=== PATIENT | female | born 1940 | race Caucasian/White ===

== ENCOUNTER 2019-06-15 10:13 | Outpatient (CLI) | payer MEDICARE, MEDICAID, SELFPAY ==
--- NOTE | ~2019-06-15 | NM_ITS ---
EXAMINATION: NM bone 3 phase DATE: 06/15/2019 13:27 INDICATION: Left knee arthroplasty loosening. TECHNIQUE: 22.2 mCi Tc-99m HDP was administered intravenously. Scintigrams of the knees were obtained in angiographic, blood pool, and delayed phases. COMPARISON: Left knee radiographs 08/14/2017 FINDINGS: Right knee demonstrates joint-centered increased activity in the medial compartment on the delayed phase without radiographic comparison, likely osteoarthritis. There is a total left knee arth roplasty. There is mildly increased activity adjacent to the femoral, tibial, and patellar components on the delayed phase images. IMPRESSION: 1. Total left knee arthroplasty with mildly increased activity adjacent to the components, which may be normal or a finding of loosening or infection. Correlate with recent radiographs. Reviewed, dictated and finalized at location A. [facility] SEPARATION IMPRESSION: 1. Total left knee arthroplasty with mildly increased activity adjacent to the components, which may be normal or a finding of loosening or infection. Correl ate with recent radiographs.
[2019-06-15 12:08] LABS: Erythrocyte Sedimentation Rate 20 mm/hr (0-20)
[2019-06-15 12:11] LABS: CRP < 0.5 mg/dL (<1.0)
== END 2019-06-15 10:14 | disposition home or self-care (01) ==
LOC: ANHIMG 10:24
PROVIDERS: PCP Family Medicine; Visit Provider Orthopaedic Surgery
DX: T85.698A Other mechanical complication of other specified internal prosthetic devices, implants and grafts, initial encounter (principal); Z96.652 Presence of left artificial knee joint
CPT/HCPCS: 36415; 78315; 85652; 86140; A9561

== ENCOUNTER → 2020-06-06 07:51 | Outpatient (REF) | payer MEDICARE, BC, SELFPAY | LOC: ANHLAB 07:51 | PROVIDERS: PCP Family Medicine; Visit Provider Nurse Practitioner | DX: C44.519 Basal cell carcinoma of skin of other part of trunk (principal) | CPT/HCPCS: 88305; 88331; 88332 ==

== ENCOUNTER 2020-10-05 08:20 | Outpatient (CLI) | payer MEDICARE, MEDICAID, SELFPAY ==
[2020-10-05 09:30] LABS: Basophils Absolute Auto 0.1 K/mm3 (0.0-0.1); Basophils Percent Auto 0.8 % (0.2-1.2); Eosinophils Absolute Auto 0.2 K/mm3 (0-0.3); Eosinophils Percent Auto 2.6 % (0-4.4); Hemoglobin 13.5 g/dL (12.0-15.0); Immature Granulocyte Absolute 0.04 K/mm3 (0.00-0.031); Immature Granulocyte Percent A 0.5 % (0-0.5); Lymphocytes Absolute Auto 1.23 K/mm3 (0.9-3.2); Lymphocytes Percent Auto 16.2 % (18.3-44.2); Mean Corpuscular HGB Conc 32.9 g/dl (32-36); Mean Corpuscular Hemoglobin 29.5 pg (26-34); Mean Corpuscular Volume 89.7 fl (80-100); Mean Platelet Volume 10.1 fl (7.4-10.4); Monocytes Absolute Auto 0.6 K/mm3 (0.1-0.6); Neutrophils Absolute Auto 5.5 K/mm3 (1.3-6.7); Neutrophils Percent Auto 71.9 % (45.5-73.1); Platelet Count Result 265 k/mm3 (150-375); Red Blood Count 4.57 M/mm3 (4.2-5.4); Red Cell Distribution Width 12.9 % (11.5-14.5); White Blood Count 7.6 K/mm3 (4.5-10.0)
[2020-10-05 09:36] LABS: Hemoglobin A1C 6.3 % (<5.7)
[2020-10-05 09:39] LABS: INR 2.1
[2020-10-05 09:50] LABS: Alanine Aminotransferase 42 U/L (4-35); Albumin Level 4.4 g/dL (3.5-5.1); Alkaline Phosphatase 78 U/L (38-126); Anion Gap 8 mmol/L (8-16); Aspartate Amino Transferase 50 U/L (14-36); Bilirubin,Total 0.7 mg/dL (0.2-1.3); Blood Urea Nitrogen 21 mg/dL (7-17); Calcium 9.9 mg/dL (8.4-10.2); Carbon Dioxide 28 mmol/L (22-30); Chloride 107 mmol/L (98-107); Cholesterol 189 mg/dL (0-200); Estimated Glomerular Filt Rate > 60; Glucose 115 mg/dL (65-105); HDL Direct 57 mg/dL; Sodium 143 mmol/L (137-145); Triglycerides 158 mg/dL (<150)
[2020-10-05 09:56] LABS: LDL Cholesterol Direct 93 mg/dL
[2020-10-05 10:02] LABS: Creatinine Urine 106.9 mg/dL
[2020-10-05 10:03] LABS: MALB Creatinine Ratio 6.5 mg/g (0-30)
[2020-10-05 10:13] LABS: Total Triiodothyronine (T3) 1.38 NG/ML (0.97-1.69)
[2020-10-05 10:14] LABS: Free T4 Free Thyroxine 1.29 ng/mL (0.78-2.19); Vitamin D 25 Hydroxy 46.1 ng/mL
== END 2020-10-05 08:21 | disposition home or self-care (01) ==
PROVIDERS: PCP Family Medicine; Referring Provider Nurse Practitioner Family; Visit Provider Nurse Practitioner
DX: R73.03 Prediabetes (principal); Z79.01 Long term (current) use of anticoagulants; E66.01 Morbid (severe) obesity due to excess calories; Z51.89 Encounter for other specified aftercare
CPT/HCPCS: 36415; 80053; 80061; 82043; 82306; 83036; 84439; 84443; 84480; 85025; 85610; 85730

== ENCOUNTER 2020-10-08 10:33 | Emergency (ER) | payer MEDICARE, MEDICAID, SELFPAY ==
[2020-10-08 10:38] VITALS: BP 143/94; PULSE 76; RESP 24; TEMP 36.6; O2SAT 98
--- NOTE | 2020-10-08 11:05 | ED.WOUNDLAC ---
HPI - Wound/Laceration General Chief Complaint: Wound/Laceration Stated Complaint: L LEG INFECTION Time Seen by Provider: 10/08/20 10:37 Source: patient Mode of arrival: ambulatory Limitations: no limitations History of Present Illness HPI narrative: 80-year-old female presents to urgent care with complaints of erythematous rash to her left anterior and posterior leg for the past 6 days. Patient reports in September 23 she had a skin cancer removed to her posterior left lower leg and had 10 cora and sutures placed at that time. Patient reports that she is scheduled to follow-up with the plastic surgeon on October 11 to have cora and sutures removed. Patient reports that she did finish clindamycin 1 week ago. Patient reports that she was placed on an antibiotic prior to surgery and after surgery. Patient reports that she has been cleansing the area with antibiotic soap and reports that she has had a reaction to the soap in the past. Patient reports that she also is sensitive to tapes and adhesives. Patient denies fever, bodies, chills, nausea, vomiting or diarrhea Onset (ago): day(s) () Extremity Location: Left: lower leg Body four view annotation: 1. Poorly healing surgical site with surrounding erythema and macular papular rash Patient tetanus UTD: Yes Associated symptoms: none Related Data Home Medications Medication Instructions Recorded Confirmed metoprolol tartrate 50 mg tablet 50 mg PO Q12H 06/06/20 10/08/20 amlodipine 10 mg PO DAILY 10/08/20 10/08/20 ascorbate calcium (vitamin C) 500 mg PO DAILY 10/08/20 10/08/20 calcium carbonate [Calcium 500] 500 mg PO DAILY 10/08/20 10/08/20 cholecalciferol (vitamin D3) 125 mcg PO DAILY 10/08/20 10/08/20 [Vitamin D3] omega-3 fatty acids [[place] 3] 1,000 mg PO DAILY 10/08/20 10/08/20 vitamin B complex [B 1 tablet PO DAILY 10/08/20 10/08/20 Complex-Vitamin B12] warfarin 1 mg PO DAILY 10/08/20 10/08/20 warfarin 3 mg PO BID 10/08/20 10/08/20 Allergies Allergy/AdvReac Type Severity Reaction Status Date / Time adhesive Allergy Severe LOST SKIN Verified 10/08/20 10:41 LAST TIME,BLISTERS tetracycline Allergy Severe RASH Verified 10/08/20 10:41 Penicillins Allergy Unknown Unknown Verified 10/08/20 10:41 Sulfa (Sulfonamide Allergy Unknown RASH Verified 10/08/20 10:41 Antibiotics) sulfanilamide Allergy Unknown Unknown Verified 10/08/20 10:41 Review of Systems Constitutional: Constitutional: Denies chills, Denies fatigue, Denies fever(s) and Denies weakness Cardiovascular: Cardiovascular: Denies chest pain Respiratory: Respiratory: Denies cough, Denies dyspnea and Denies wheezing Gastrointestinal: Gastrointestinal: Denies abdominal pain, Denies nausea and Denies vomiting Integumentary/Breasts: Skin/Breast: Denies pruritus, Reports rash and Denies skin ulcer PMFSH Past Medical History Medical History DVT (deep venous thrombosis) History of melanoma HTN (hypertension) Pulmonary embolism Surgical History Surgical History History of appendectomy History of cataract extraction History of hernia repair Total knee replacement status Family History Family History Sibling Family history of diabetes mellitus in first degree relative Mother Family history of diabetes mellitus in first degree relative, Onset Age: 66 Patient's mother is Other Cerebrovascular accident Social History Social History Smoking status: Former smoker Smoking end date: 06/03/71 Alcohol intake: never Gender identity (if verbalized by the patient): Female Comments At time of signature, I agree with nursing past medical, surgical, social and family history. There is no relevant family history pertinent to the presenting complain
== END 2020-10-08 11:20 | disposition home or self-care (01) ==
PROVIDERS: Emergency Provider Nurse Practitioner Family; PCP Family Medicine
DX: L03.116 Cellulitis of left lower limb (principal); R21 Rash and other nonspecific skin eruption; Z87.891 Personal history of nicotine dependence; Z86.718 Personal history of other venous thrombosis and embolism; I10 Essential (primary) hypertension; Z86.711 Personal history of pulmonary embolism; Z85.820 Personal history of malignant melanoma of skin; Z98.49 Cataract extraction status, unspecified eye; Z96.659 Presence of unspecified artificial knee joint
CPT/HCPCS: 99213; G0463

== ENCOUNTER → 2020-10-27 11:54 | Outpatient (CLI) | payer MEDICARE, SELFPAY ==
--- NOTE | ~2020-10-27 | MM_ITS ---
EXAMINATION: MM screening cal BI w etta HISTORY: Screening mammogram TECHNIQUE: Craniocaudal and mediolateral oblique 3-D tomosynthesis images were obtained and synthetic 2-D images were generated. CAD analysis was submitted and interpreted. COMPARISON: 12/15/2015, 09/26/2012 bilateral digital screening mammogram examinations BREAST PARENCHYMAL COMPOSITION: There are scattered areas of fibroglandular density. FINDINGS: There are numerous bilateral benign calcifications, likely calcified microhematomas and sec retory calcifications as well as arterial calcification. There is no evidence of suspicious mass, stephanie cification, or architectural distortion to suggest malignancy in either breast. There has been no estiven picious interval change. IMPRESSION: 1. No mammographic evidence of malignancy. 2. Recommend routine screening mammography in one year. BI-RADS Category 2: Benign finding(s). Reviewed, dictated and finalized at location A.
== END ==
PROVIDERS: PCP Family Medicine; Visit Provider Nurse Practitioner
DX: Z12.31 Encounter for screening mammogram for malignant neoplasm of breast (principal)
CPT/HCPCS: 77063; 77067

== ENCOUNTER 2020-12-14 08:43 | Outpatient (CLI) | payer MEDICARE, MEDICAID, SELFPAY ==
[2020-12-14 09:58] LABS: Alanine Aminotransferase 32 U/L (4-35); Albumin Level 4.5 g/dL (3.5-5.1); Alkaline Phosphatase 67 U/L (38-126); Anion Gap 11 mmol/L (8-16); Aspartate Amino Transferase 36 U/L (14-36); Bilirubin,Total 0.8 mg/dL (0.2-1.3); Blood Urea Nitrogen 21 mg/dL (7-17); Calcium 9.9 mg/dL (8.4-10.2); Carbon Dioxide 25 mmol/L (22-30); Chloride 106 mmol/L (98-107); Estimated Glomerular Filt Rate > 60; Glucose 110 mg/dL (65-105); Sodium 142 mmol/L (137-145)
== END 2020-12-14 08:44 | disposition home or self-care (01) ==
LOC: ANHLAB 08:47
PROVIDERS: PCP Family Medicine; Visit Provider Nurse Practitioner Family
DX: Z51.81 Encounter for therapeutic drug level monitoring (principal); Z79.899 Other long term (current) drug therapy
CPT/HCPCS: 36415; 80053

== ENCOUNTER 2021-01-11 06:51 | Day surgery (SDC) | payer MEDICARE, MEDICAID, SELFPAY ==
[2020-12-29 12:55] VITALS: BMI 39.8
[2021-01-11 09:15] VITALS: BP 135/85; PULSE 65; RESP 18; TEMP 35.7; O2SAT 97; BMI 36.9
[2021-01-11] MEDS: LACTATED RINGERS 1,000 ML 150 ML IV CONT (09:37)
--- NOTE | 2021-01-11 09:37 | P.PNAN_ITS ---
Anes - Initial Pre Proc Eval Procedure: Operation Date: 01/11/21 10:00 Proposed Procedures p Screening Colonoscopy - Chris Toro MD Date/Time: 01/11/21 09:37 Surgeon: Chris Toro MD Pre Op Diagnosis: hx of colon polyps Patient Data Age: 80 Gender: F Height: 1.65 m Weight: 100.7 kg Last Vital Signs Temp 35.7 C L 01/11/21 09:15 Pulse 65 01/11/21 09:15 Resp 18 01/11/21 09:15 BP 135/85 01/11/21 09:15 Pulse Ox 97 01/11/21 09:15 Allergies Allergy/AdvReac Type Severity Reaction Status Date / Time adhesive tape Allergy Rash Verified 01/11/21 09:14 Penicillins Allergy Hives Verified 01/11/21 09:14 Sulfa (Sulfonamide Allergy Hives Verified 01/11/21 09:14 Antibiotics) Home Medications Medication Instructions Recorded Confirmed Type sodium,potassium,mag sulfates See Rx Instructions .ROUTE 12/27/20 Rx [Suprep Bowel Prep Kit] .COMPLEX #1 ml amlodipine 10 mg PO DAILY 12/29/20 12/29/20 History lisinopril 5 mg PO DAILY 12/29/20 12/29/20 History metoprolol tartrate 50 mg PO DAILY 12/29/20 12/29/20 History warfarin 1 mg PO DAILY 12/29/20 12/29/20 History warfarin 3 mg PO DAILY 12/29/20 12/29/20 History Patient hx anesthesia problems: none Family hx anesthesia problems: none [facility] Past Medical History Medical History (Updated 01/11/21 @ 09:37 by Aries Nicholson MD) DVT (deep venous thrombosis) HTN (hypertension) Obesity Social History Social History Substance use type: does not use Gender identity (if verbalized by the patient): Female Anes - Eval Final PreProcedure Day of Procedure 01/11/21 09:37 Patient weight: obese Heart: regular rate and rhythm Lungs: clear to auscultation Airway: Mallampati scale class II Neurological: alert and oriented Last oral intake: >/= 8 hours ASA classification: III Emergent: no Anesthetic plan: proceed (pending INR) Anesthesia type and monitoring: general GIVS and standard monitoring Informed Consent: The patient's anesthetic plan and its attendant risks and benefits were discussed with the patient/family/POA. Questions were solicited and answers provided to the satisfaction of the patient/family/POA.
--- NOTE | 2021-01-11 09:55 | WPDGICN ---
Assessment and Plan Assessment and plan (1) History of colon polyps: Code(s): Z86.010 - Personal history of colonic polyps Status: Acute Assessment and Plan: Patient has a prior history of colon polyps. She presents today for surveillance examination. Further recommendations will be given after endoscopy. GI Consult Note Consult date/time: 01/11/21 09:55 HPI: Dorene Tapia is a 80 year old female Presents for screening colonoscopy. Patient has a prior history of colon polyps. Her last colonoscopy was 6 years ago. Patient reports that her current weight appetite bowel movements are normal. She denies abdominal pain. She has had no bleeding. Family history is noncontributory. Screening colonoscopy is to be performed. Review of Systems Review of Systems: All systems reviewed & are unremarkable except as noted in HPI and below PMFSH Past Medical History Medical History (Updated 01/11/21 @ 09:56 by Chris Toro MD) DVT (deep venous thrombosis) HTN (hypertension) Obesity Social History Social History Substance use type: does not use Gender identity (if verbalized by the patient): Female Meds Home Medications and Allergies Home Medications Medication Instructions Recorded Confirmed Type amlodipine 10 mg PO DAILY 12/29/20 12/29/20 History lisinopril 5 mg PO DAILY 12/29/20 12/29/20 History metoprolol tartrate 50 mg PO DAILY 12/29/20 01/11/21 History warfarin 1 mg PO DAILY 12/29/20 12/29/20 History warfarin 3 mg PO DAILY 12/29/20 12/29/20 History Allergies Allergy/AdvReac Type Severity Reaction Status Date / Time adhesive tape Allergy Rash Verified 01/11/21 09:14 Penicillins Allergy Hives Verified 01/11/21 09:14 Sulfa (Sulfonamide Allergy Hives Verified 01/11/21 09:14 Antibiotics) Vital Signs Vital Signs - 24 hr 01/11/21 09:15 Temperature 96.2 F L Pulse Rate 65 Respiratory Rate 18 Blood Pressure 135/85 Pulse Oximetry 97 Exam Narrative: Physical exam reveals patient to be alert. Vital signs are stable. HEENT exam is unremarkable. Patient is anicteric. Lungs are clear to auscultation and percussion. Heart is without murmur or extra sounds. Abdomen is obese. Bowel sounds present soft nontender extremities is reveal healed scar over the left knee which is modestly swollen. Digital external rectal exam is normal.
[2021-01-11 10:25] LABS: INR 1.1; Prothrombin Time 13.7 Seconds (11.1-14.7)
[2021-01-11 11:03] VITALS: BP 136/81; PULSE 64; RESP 22; O2SAT 97
[2021-01-11 11:13] VITALS: BP 134/78; PULSE 64; RESP 23; O2SAT 97
[2021-01-11 11:23] VITALS: BP 153/92; PULSE 65; RESP 23; O2SAT 98
== END 2021-01-11 11:30 | disposition home or self-care (01) ==
PROVIDERS: PCP Family Medicine; Visit Provider Internal Medicine Gastroenterology
PROC: 0DJD8ZZ Inspection of Lower Intestinal Tract, Via Natural or Artificial Opening Endoscopic (ICD-10-PCS; CPT 45378; principal; 2021-01-11 10:00)
DX: Z12.11 Encounter for screening for malignant neoplasm of colon (principal); K64.8 Other hemorrhoids; Z86.010 Personal history of colon polyps; I10 Essential (primary) hypertension; Z86.718 Personal history of other venous thrombosis and embolism; Z79.01 Long term (current) use of anticoagulants; E66.9 Obesity, unspecified; Z68.36 Body mass index [BMI] 36.0-36.9, adult
CPT/HCPCS: G0105; 36415; 85610; J7120

== ENCOUNTER 2021-03-08 08:35 | Emergency (ER) | payer OTHER, MEDICARE, MEDICAID, SELFPAY ==
--- NOTE | ~2021-03-08 | XR_ITS ---
EXAMINATION: XR hip RT 2V w AP pelvis DATE: 03/08/2021 09:26 INDICATION: Right hip injury. TECHNIQUE: An anteroposterior view of the pelvis and 2 views of right hip were obtained. COMPARISON: None. FINDINGS: Bone alignment is normal. No fracture. There is moderate osteoarthritis of the hips. There is a calcified mass in the pelvis to the right of midline, likely a uterine fibroid. IMPRESSION: 1. Moderate osteoarthritis of the hips. Reviewed, dictated and finalized at location A.
--- NOTE | ~2021-03-08 | XR_ITS ---
EXAMINATION: XR knee RT min 4V DATE: 03/08/2021 09:26 INDICATION: Right knee injury. TECHNIQUE: 4 views of right knee were obtained. COMPARISON: None. FINDINGS: Bone alignment is normal. No fracture. There is severe osteoarthritis of medial compartment and mild osteoarthritis of lateral and patellofemoral compartments. No knee joint effusion. IMPRESSION: 1. Severe right knee osteoarthritis. Reviewed, dictated and finalized at location A.
[2021-03-08 08:41] VITALS: BP 150/85; PULSE 78; RESP 16; TEMP 36.4; O2SAT 95
--- NOTE | 2021-03-08 08:58 | PC.NURSE ---
Dr. Montez at bedside for pt assessment.
--- NOTE | 2021-03-08 09:26 | ED.LOWEXIN ---
HPI - Extremity Injury (Lower) General Chief Complaint: Extremity Injury, Lower Stated Complaint: fall with right knee pain, 4 days ago Time Seen by Provider: 03/08/21 08:54 Source: patient Mode of arrival: ambulatory Limitations: no limitations History of Present Illness HPI Narrative: This is a 80 year old female who presents for evaluation of right knee pain. Patient fell 4 days ago onto her right knee. She has been able to ambulate with some pain. She thought her pain would improve so she did not go get evaluated at that time. She denies head injury or LOC. She has bruising and swelling to her right knee, and she takes warfarin for history of DVT/PE. She denies chest pain, sob, dizziness, nausea or vomiting. She denies excessive bleeding. Related Data Home Medications Medication Instructions Recorded Confirmed metoprolol tartrate 50 mg tablet 50 mg PO Q12H 06/06/20 10/08/20 amlodipine 10 mg PO DAILY 10/08/20 10/08/20 ascorbate calcium (vitamin C) 500 mg PO DAILY 10/08/20 10/08/20 calcium carbonate [Calcium 500] 500 mg PO DAILY 10/08/20 10/08/20 cholecalciferol (vitamin D3) 125 mcg PO DAILY 10/08/20 10/08/20 [Vitamin D3] omega-3 fatty acids [[place] 3] 1,000 mg PO DAILY 10/08/20 10/08/20 vitamin B complex [B 1 tablet PO DAILY 10/08/20 10/08/20 Complex-Vitamin B12] warfarin 1 mg PO DAILY 10/08/20 10/08/20 warfarin 3 mg PO BID 10/08/20 10/08/20 Allergies Allergy/AdvReac Type Severity Reaction Status Date / Time adhesive Allergy Severe LOST SKIN Verified 03/08/21 08:45 LAST TIME,BLISTERS tetracycline Allergy Severe RASH Verified 03/08/21 08:45 Penicillins Allergy Unknown Unknown Verified 03/08/21 08:45 Sulfa (Sulfonamide Allergy Unknown RASH Verified 03/08/21 08:45 Antibiotics) sulfanilamide Allergy Unknown Unknown Verified 03/08/21 08:45 Review of Systems Review of Systems: All systems reviewed & are unremarkable except as noted in HPI and below PMFSH Past Medical History Medical History DVT (deep venous thrombosis) History of melanoma HTN (hypertension) Pulmonary embolism Surgical History Surgical History History of appendectomy History of cataract extraction History of hernia repair Total knee replacement status Family History Family History Sibling Family history of diabetes mellitus in first degree relative Mother Family history of diabetes mellitus in first degree relative, Onset Age: 66 Patient's mother is Other Cerebrovascular accident Social History Social History Smoking status: Former smoker Smoking end date: 06/03/71 Alcohol intake: never Gender identity (if verbalized by the patient): Female Exam Const: General: no acute distress and alert Orientation/consciousness: patient oriented x3 HENMT: Head: normocephalic and atraumatic Face and sinus: face symmetric and other (right facial hemangioma) Mouth: Yes Normal oral and palatal mucosa present, Yes lip normal, Yes oropharynx normal and Yes moist mucous membranes Eyes: Pupils: Equal, round and reactive pupils present EOM: EOMs intact bilaterally Chest: Chest palpation & inspection: normal inspection of the chest and no tenderness Resp: Effort & Inspection: normal respiratory effort and no retractions Auscultation: clear to auscultation bilaterally Cardio: Rate: regular rate Rhythm: regular rhythm Heart sounds: no murmurs GI: GI Palp: Yes Soft to palpation, No Tenderness to palpation present (GI) and No Guarding due to palpation present (GI) Auscultation: normal bowel sounds Neuro: General: patient oriented x3, moves all extremities and CN's II-XI intact bilaterally Extrem: Other: right knee with bruising and ecchymosis. Decreased ability to flex at
[2021-03-08 09:48] LABS: Basophils Absolute Auto 0.1 K/mm3 (0.0-0.1); Basophils Percent Auto 0.9 % (0.2-1.2); Eosinophils Absolute Auto 0.2 K/mm3 (0-0.3); Eosinophils Percent Auto 3.4 % (0-4.4); Hematocrit 37.2 % (37.0-47.0); Hemoglobin 12.1 g/dL (12.0-15.0); Immature Granulocyte Absolute 0.02 K/mm3 (0.00-0.031); Immature Granulocyte Percent A 0.3 % (0-0.5); Lymphocytes Absolute Auto 1.17 K/mm3 (0.9-3.2); Lymphocytes Percent Auto 20.1 % (18.3-44.2); Mean Corpuscular HGB Conc 32.5 g/dl (32-36); Mean Corpuscular Hemoglobin 29.8 pg (26-34); Mean Corpuscular Volume 91.6 fl (80-100); Monocytes Absolute Auto 0.6 K/mm3 (0.1-0.6); Monocytes Percent Auto 10.8 % (2.6-8.5); Neutrophils Absolute Auto 3.8 K/mm3 (1.3-6.7); Neutrophils Percent Auto 64.5 % (45.5-73.1); Platelet Count Result 193 k/mm3 (150-375); Red Blood Count 4.06 M/mm3 (4.2-5.4); Red Cell Distribution Width 13.3 % (11.5-14.5); White Blood Count 5.8 K/mm3 (4.5-10.0)
[2021-03-08 09:59] LABS: Alanine Aminotransferase 16 U/L (4-35); Albumin Level 4.3 g/dL (3.5-5.1); Alkaline Phosphatase 73 U/L (38-126); Anion Gap 8 mmol/L (8-16); Aspartate Amino Transferase 24 U/L (14-36); Bilirubin,Total 0.9 mg/dL (0.2-1.3); Blood Urea Nitrogen 10 mg/dL (7-17); Carbon Dioxide 26 mmol/L (22-30); Chloride 109 mmol/L (98-107); Estimated CRCL calculation 61 ml/min; Estimated Glomerular Filt Rate > 60; Glucose 112 mg/dL (65-110); Sodium 143 mmol/L (137-145)
[2021-03-08 10:16] LABS: INR 3.1; Prothrombin Time 31.2 Seconds (11.1-14.7)
[2021-03-08 10:17] LABS: Partial Thromboplastin Time 42.9 SECONDS (22.3-36.8)
[2021-03-08 10:21] VITALS: BP 154/82; PULSE 66; RESP 15; O2SAT 96
[2021-03-08 11:16] VITALS: BP 154/82; PULSE 66; RESP 18; O2SAT 96
== END 2021-03-08 11:18 | disposition home or self-care (01) ==
PROVIDERS: Emergency Provider General Practice; PCP Family Medicine
DX: S80.01XA Contusion of right knee, initial encounter (principal); M17.11 Unilateral primary osteoarthritis, right knee; Z79.01 Long term (current) use of anticoagulants; Z86.718 Personal history of other venous thrombosis and embolism; I10 Essential (primary) hypertension; W19.XXXA Unspecified fall, initial encounter
CPT/HCPCS: 36415; 73502; 73564; 80053; 85025; 85610; 85730; 99284

== ENCOUNTER 2021-07-20 08:13 | Outpatient (CLI) | payer MEDICARE, MEDICAID, SELFPAY ==
[2021-07-20 09:08] LABS: Basophils Percent Auto 0.7 % (0.2-1.2); Eosinophils Absolute Auto 0.1 K/mm3 (0-0.3); Eosinophils Percent Auto 2.6 % (0-4.4); Hematocrit 41.6 % (37.0-47.0); Hemoglobin 13.9 g/dL (12.0-15.0); Immature Granulocyte Absolute 0.02 K/mm3 (0.00-0.031); Immature Granulocyte Percent A 0.4 % (0-0.5); Lymphocytes Percent Auto 20.1 % (18.3-44.2); Mean Corpuscular HGB Conc 33.4 g/dl (32-36); Mean Corpuscular Hemoglobin 29.1 pg (26-34); Mean Corpuscular Volume 87.2 fl (80-100); Mean Platelet Volume 9.7 fl (7.4-10.4); Monocytes Absolute Auto 0.5 K/mm3 (0.1-0.6); Monocytes Percent Auto 9.5 % (2.6-8.5); Neutrophils Absolute Auto 3.7 K/mm3 (1.3-6.7); Neutrophils Percent Auto 66.7 % (45.5-73.1); Platelet Count Result 227 k/mm3 (150-375); Red Blood Count 4.77 M/mm3 (4.2-5.4); Red Cell Distribution Width 13.2 % (11.5-14.5); White Blood Count 5.5 K/mm3 (4.5-10.0)
[2021-07-20 09:24] LABS: Alanine Aminotransferase 16 U/L (4-35); Albumin Level 4.4 g/dL (3.5-5.1); Alkaline Phosphatase 91 U/L (38-126); Anion Gap 8 mmol/L (8-16); Aspartate Amino Transferase 27 U/L (14-36); Blood Urea Nitrogen 19 mg/dL (7-17); Calcium 9.3 mg/dL (8.4-10.2); Carbon Dioxide 23 mmol/L (22-30); Chloride 109 mmol/L (98-107); Cholesterol 238 mg/dL (0-200); Estimated Glomerular Filt Rate > 60; Glucose 117 mg/dL (65-110); HDL Direct 48 mg/dL; Potassium 3.3 mmol/L (3.4-5.0); Sodium 140 mmol/L (137-145); Triglycerides 155 mg/dL (<150)
[2021-07-20 09:28] LABS: Hemoglobin A1C 5.8 % (<5.7)
[2021-07-20 09:42] LABS: LDL Cholesterol Direct 141 mg/dL
[2021-07-20 09:56] LABS: Total Triiodothyronine (T3) 1.18 NG/ML (0.97-1.69)
[2021-07-20 10:08] LABS: Free T4 Free Thyroxine 1.33 ng/mL (0.78-2.19); Vitamin D 25 Hydroxy 51.9 ng/mL
== END 2021-07-20 08:14 | disposition home or self-care (01) ==
PROVIDERS: PCP Family Medicine
DX: R73.03 Prediabetes (principal); E55.9 Vitamin D deficiency, unspecified; R80.9 Proteinuria, unspecified; Z13.1 Encounter for screening for diabetes mellitus; Z13.29 Encounter for screening for other suspected endocrine disorder; Z13.220 Encounter for screening for lipoid disorders; Z13.6 Encounter for screening for cardiovascular disorders; Z13.0 Encounter for screening for diseases of the blood and blood-forming organs and certain disorders involving the immune mechanism
CPT/HCPCS: 36415; 80053; 80061; 82306; 83036; 84439; 84443; 84480; 85025

== ENCOUNTER 2022-06-12 12:28 | Emergency (ER) | payer MEDICARE, MEDICAID, SELFPAY ==
--- NOTE | ~2022-06-12 | XR_ITS ---
EXAMINATION: XR ribs LT 2V w CXR 2V INDICATION: Chest pain after fall TECHNIQUE: PA and lateral views of the chest and 3 views of the left ribs were obtained. COMPARISON: 08/05/2017 FINDINGS: There is mild atelectasis of the lung bases. There is a lens-shaped peripheral density in t he right mid thorax. No pleural effusion or pneumothorax. The cardiomediastinal silhouette is normal. Calcified mediastinal lymph nodes are consistent with old granulomatous disease. There is moderate t horacic spondylosis. There are anterolateral fractures of the left fourth and fifth ribs. An IVC filt er is noted. There are surgical clips in the left upper quadrant. IMPRESSION: 1. Anterolateral fractures of the left fourth and fifth ribs. 2. Apparent pleural-based mass of the right mid thorax which could reflect sequela of prior trauma, e xtrapleural fat, or possibly soft tissue mass. Follow-up with nonemergent CT of the chest is recommen ded. Reviewed, dictated and finalized at location L. H MIXER OPERATOR IMPRESSION: 1. Anterolateral fractures of the left fourth and fifth ribs. 2. Apparent pleural-based mass of the right mid thorax which could reflect sequ anuel of prior trauma, extrapleural fat, or possibly soft tissue mass. Follow-up with nonemergent CT of the chest is recommended.
[2022-06-12 12:52] VITALS: BP 146/65; PULSE 70; RESP 16; TEMP 36.8; O2SAT 97
--- NOTE | 2022-06-12 14:15 | ECG_ITS ---
Measurements Intervals [place] Rate: 61 P: 54 [place]: 202 QRS: -50 QRSD: 100 T: 10 QT: 433 QTc: 439 Interpretive Statements SINUS RHYTHM LEFT AXIS DEVIATION LOW QRS VOLTAGE IN PRECORDIAL LEADS INCOMPLETE RIGHT BUNDLE BRANCH BLOCK LEFT VENTRICULAR HYPERTROPHY ANTEROSEPTAL INFARCT, AGE INDETERMINATE INFERIOR INFARCT, AGE INDETERMINATE BASELINE ARTIFACT- I, II, AVR, AVL, V1 ABNORMAL ECG NO PREVIOUS ECG AVAILABLE FOR COMPARISON Electronically Signed On 06-12-2022 14:51:59 [employer]OX [employer] by Dominic Christianson D.O.
--- NOTE | 2022-06-12 14:16 | ED.FALL ---
HPI - Fall General Chief Complaint: Fall Stated Complaint: fall Time Seen by Provider: 06/12/22 13:29 History of Present Illness HPI Narrative: 82-year-old female history of hypertension and tolerating PE presents to the emergency room for evaluation of left lateral rib cage pain. Patient states 2 weeks ago she suffered a possible syncopal episode where she fell striking the left side of her ribs on the floor. Denied any other injuries at that time. Patient is currently on Coumadin for DVT prophylaxis. Denied any other injuries at that time. States that she went to see her PCP yesterday and I have her INR checked, where she was instructed to come to the emergency room to have imaging. Denies any shortness of breath or difficulty breathing. Has been taking Tylenol with no relief of symptoms. Related Data Home Medications Medication Instructions Recorded Confirmed metoprolol tartrate 50 mg tablet 50 mg PO Q12H 06/06/20 10/08/20 amlodipine 10 mg tablet 10 mg PO DAILY 10/08/20 10/08/20 ascorbate calcium (vitamin C) 500 500 mg PO DAILY 10/08/20 10/08/20 mg capsule calcium carbonate 500 mg calcium 500 mg PO DAILY 10/08/20 10/08/20 (1,250 mg) tablet (Calcium 500) cholecalciferol (vitamin D3) 125 125 mcg PO DAILY 10/08/20 10/08/20 mcg (5,000 unit) tablet (Vitamin D3) omega-3 fatty acids 1,000 mg PO DAILY 10/08/20 10/08/20 vitamin B complex (B 1 tablet PO DAILY 10/08/20 10/08/20 Complex-Vitamin B12 tablet) warfarin 1 mg tablet 1 mg PO DAILY 10/08/20 10/08/20 warfarin 3 mg tablet 3 mg PO BID 10/08/20 10/08/20 amlodipine 10 mg tablet 10 mg PO DAILY 12/29/20 12/29/20 lisinopril 5 mg tablet 5 mg PO DAILY 12/29/20 12/29/20 metoprolol tartrate 50 mg tablet 50 mg PO DAILY 12/29/20 01/11/21 warfarin 1 mg tablet 1 mg PO DAILY 12/29/20 12/29/20 warfarin 3 mg tablet 3 mg PO DAILY 12/29/20 12/29/20 Allergies Allergy/AdvReac Type Severity Reaction Status Date / Time adhesive Allergy Severe LOST SKIN Verified 08/07/21 13:52 LAST TIME,BLISTERS tetracycline Allergy Severe RASH Verified 08/07/21 13:52 sulfanilamide Allergy Unknown Unknown Verified 08/07/21 13:52 adhesive tape Allergy Rash Verified 08/07/21 13:52 Penicillins Allergy Hives Verified 08/07/21 13:52 Sulfa (Sulfonamide Allergy Hives Verified 08/07/21 13:52 Antibiotics) Review of Systems Review of Systems: CONSTITUTIONAL: Denies fever, chills, or sweats. EYES: Denies visual changes, redness, or discharge. ENT: Denies rhinorrhea, congestion, sore throat, or otalgia. CARDIOVASCULAR: Denies chest pain, palpitations, or edema. RESPIRATORY: Denies cough or dyspnea. GASTROINTESTINAL: Denies abdominal pain, nausea, vomiting, or diarrhea. GENITOURINARY: Denies dysuria or hematuria. SKIN: Denies rash or itching. MUSCULOSKELETAL: Reports left anterior lateral chest wall pain NEUROLOGIC: Denies headache, numbness, dizziness, or weakness. PSYCHIATRIC: Denies anxiety or depression. [facility] Past Medical History Medical History DVT (deep venous thrombosis) DVT (deep venous thrombosis) History of melanoma HTN (hypertension) HTN (hypertension) Obesity Pulmonary embolism Surgical History Surgical History History of appendectomy History of cataract extraction History of hernia repair Total knee replacement status Family History Family History Sibling Family history of diabetes mellitus in first degree relative Mother Family history of diabetes mellitus in first degree relative, Onset Age: 66 Patient's mother is Other Cerebrovascular accident Social History Social History Smoking status: Former smoker Smoking end date: 06/03/71 Alcohol intake: never Substance use type: does not use Gender identity (if verba
== END 2022-06-12 15:15 | disposition home or self-care (01) ==
LOC: ANHED 14:32
PROVIDERS: Emergency Provider Nurse Practitioner Family; PCP Family Medicine
DX: S22.32XA Fracture of one rib, left side, initial encounter for closed fracture (principal); W19.XXXA Unspecified fall, initial encounter; I10 Essential (primary) hypertension; Z79.01 Long term (current) use of anticoagulants; Z86.718 Personal history of other venous thrombosis and embolism
CPT/HCPCS: 71046; 71100; 93005; 99283

== ENCOUNTER 2022-07-24 20:42 | Observation (INO) | payer MEDICARE, MEDICAID, SELFPAY ==
--- NOTE | ~2022-07-24 | CT_ITS ---
EXAMINATION: CT lumbar spine wo con DATE: 07/24/2022 22:37 INDICATION: back pain . TECHNIQUE: Computed tomography (CT) of the lumbar spine was performed without intravenous contrast. A utomated exposure control and iterative reconstruction technique were employed. The dose-length produ ct was 1211.31 mGy-cm. COMPARISON: X-ray L-spine, same date. FINDINGS: Atherosclerotic calcifications. No significant abdominal aortic aneurysm. Calcified uterine fibroid. IVC filter. Severe osteopenia. Acute appearing L1 fracture with involvement of the anterior and posterior cortices, moderate height loss, and 3 mm retropulsion of osseous fragments severe bila teral neural foraminal narrowing at L5-S1. Multilevel degenerative disc disease, severe at L5-S1. No severe central canal stenosis. Multilevel facet arthropathy with interspinous narrowing. IMPRESSION: Likely acute, moderate burst fracture of L1, with 3 mm retropulsion of osseous fragments into the spi nal canal. Chronic and incidental findings detailed above. Reviewed, dictated and finalized at location K. NAILER IMPRESSION: Likely acute, moderate burst fracture of L1, with 3 mm retropulsion of osseous fragments into the spinal canal. Chronic and incidental findings detailed above .
--- NOTE | ~2022-07-24 | XR_ITS ---
EXAM: XR lumbar spine 2-3V DATE: 07/24/2022 21:58 HISTORY: lower back pain, fall 2 DAYS AGO . COMPARISON: X-ray RIBS 06/12/2022. FINDINGS: Severe osteopenia. IVC filter. Calcified fibroid. Surgical clips project over the left upp er quadrant. Severe height loss at L1. 3 mm anterolisthesis at L4-5. The remaining vertebral bodies a re aligned. Multilevel facet arthropathy. Moderate degenerative disc disease at L5-S1. IMPRESSION: Severe compression deformity at L1, new since the prior exam. Reviewed, dictated and finalized at location K. RADIOLOGIC TECHNOLOGIST
[2022-07-24 20:43] VITALS: BP 143/74; PULSE 71; RESP 18; TEMP 36.7; O2SAT 95
[2022-07-24 22:53] VITALS: BP 157/78; PULSE 81; RESP 20; O2SAT 97
--- NOTE | 2022-07-24 22:58 | PC.NURSE ---
Pt reports lower back pain that she believes is related to falling yesterday morning. Pt states she called EMS and they helped her up but did not transport her to be evaluated. Pain is worse when she stands. She denies pain radiating down her leg, denies numbness/tingling to her legs, or loss of bowel/bladder. She has been taking tylenol at home for pain without relief.
[2022-07-24] MEDS: MORPHINE SULFATE (*CRX) 4 MG/ML INJ IV PUSH (23:45)
[2022-07-24 23:47] VITALS: BP 148/72; PULSE 76; RESP 20; O2SAT 96
[2022-07-24 23:49] LABS: Basophils Absolute Auto 0.1 K/mm3 (0.0-0.1); Basophils Percent Auto 0.6 % (0.2-1.2); Eosinophils Absolute Auto 0.1 K/mm3 (0-0.3); Eosinophils Percent Auto 1.7 % (0-4.4); Hematocrit 41.6 % (37.0-47.0); Immature Granulocyte Absolute 0.02 K/mm3 (0.00-0.031); Immature Granulocyte Percent A 0.3 % (0-0.5); Lymphocytes Absolute Auto 1.17 K/mm3 (0.9-3.2); Lymphocytes Percent Auto 15.1 % (18.3-44.2); Mean Corpuscular HGB Conc 33.7 g/dl (32-36); Mean Corpuscular Hemoglobin 29.2 pg (26-34); Mean Corpuscular Volume 86.8 fl (80-100); Mean Platelet Volume 9.4 fl (7.4-10.4); Monocytes Absolute Auto 0.9 K/mm3 (0.1-0.6); Monocytes Percent Auto 11.8 % (2.6-8.5); Neutrophils Absolute Auto 5.5 K/mm3 (1.3-6.7); Neutrophils Percent Auto 70.5 % (45.5-73.1); Platelet Count Result 196 k/mm3 (150-375); Red Blood Count 4.79 M/mm3 (4.2-5.4); Red Cell Distribution Width 13.2 % (11.5-14.5); White Blood Count 7.8 K/mm3 (4.5-10.0)
[2022-07-24 23:58] LABS: Alanine Aminotransferase 15 U/L (6-35); Albumin Level 4.4 g/dL (3.5-5.1); Alkaline Phosphatase 98 U/L (38-126); Anion Gap 10 mmol/L (8-16); Aspartate Amino Transferase 21 U/L (14-36); Blood Urea Nitrogen 19 mg/dL (7-17); Calcium 8.9 mg/dL (8.4-10.2); Carbon Dioxide 26 mmol/L (22-30); Chloride 108 mmol/L (98-107); Estimated CRCL calculation 63 ml/min; Estimated Glomerular Filt Rate > 60; Glucose 126 mg/dL (65-110); Sodium 144 mmol/L (137-145)
[2022-07-25] VITALS (7 sets, daily range): BP systolic 134–158; BP diastolic 77–118; PULSE 71–145; RESP 13–24; TEMP 35.7–37; O2SAT 92–96; BMI 33.0
[2022-07-25] LABS: INR 2.4
[2022-07-25 00:01] LABS: Partial Thromboplastin Time 43.8 SECONDS (22.3-36.8)
--- NOTE | 2022-07-25 00:18 | ED.GENADULT ---
HPI - General Adult General Chief complaint: Back Pain/Injury Stated complaint: lower back pain Time Seen by Provider: 07/24/22 23:22 History of Present Illness HPI narrative: Patient is a 82-year-old female who presents the emergency department with chief complaint of back pain. The patient reports that she was home yesterday and was standing in the kitchen and fell backwards the patient reports the ground did not strike her head had no loss of consciousness. The patient does reports that she blood thinners Related Data Home Medications Medication Instructions Recorded Confirmed metoprolol tartrate 50 mg tablet 50 mg PO Q12H 06/06/20 10/08/20 amlodipine 10 mg tablet 10 mg PO DAILY 10/08/20 10/08/20 ascorbate calcium (vitamin C) 500 500 mg PO DAILY 10/08/20 10/08/20 mg capsule calcium carbonate 500 mg calcium 500 mg PO DAILY 10/08/20 10/08/20 (1,250 mg) tablet (Calcium 500) cholecalciferol (vitamin D3) 125 125 mcg PO DAILY 10/08/20 10/08/20 mcg (5,000 unit) tablet (Vitamin D3) omega-3 fatty acids 1,000 mg PO DAILY 10/08/20 10/08/20 vitamin B complex (B 1 tablet PO DAILY 10/08/20 10/08/20 Complex-Vitamin B12 tablet) warfarin 1 mg tablet 1 mg PO DAILY 10/08/20 10/08/20 warfarin 3 mg tablet 3 mg PO BID 10/08/20 10/08/20 amlodipine 10 mg tablet 10 mg PO DAILY 12/29/20 12/29/20 lisinopril 5 mg tablet 5 mg PO DAILY 12/29/20 12/29/20 metoprolol tartrate 50 mg tablet 50 mg PO DAILY 12/29/20 01/11/21 warfarin 1 mg tablet 1 mg PO DAILY 12/29/20 12/29/20 warfarin 3 mg tablet 3 mg PO DAILY 12/29/20 12/29/20 Allergies Allergy/AdvReac Type Severity Reaction Status Date / Time adhesive Allergy Severe LOST SKIN Verified 08/07/21 13:52 LAST TIME,BLISTERS tetracycline Allergy Severe RASH Verified 08/07/21 13:52 sulfanilamide Allergy Unknown Unknown Verified 08/07/21 13:52 adhesive tape Allergy Rash Verified 08/07/21 13:52 Penicillins Allergy Hives Verified 08/07/21 13:52 Sulfa (Sulfonamide Allergy Hives Verified 08/07/21 13:52 Antibiotics) Review of Systems Review of Systems: A 10 system review of systems was completed on the patient and is negative except for what is stated in the HPI. Nursing and ancillary documentation was reviewed. [facility] Past Medical History Medical History DVT (deep venous thrombosis) DVT (deep venous thrombosis) History of melanoma HTN (hypertension) HTN (hypertension) Obesity Pulmonary embolism Surgical History Surgical History History of appendectomy History of cataract extraction History of hernia repair Total knee replacement status Family History Family History Sibling Family history of diabetes mellitus in first degree relative Mother Family history of diabetes mellitus in first degree relative, Onset Age: 66 Patient's mother is Other Cerebrovascular accident Social History Social History Smoking status: Former smoker Smoking end date: 06/03/71 Alcohol intake: never Substance use type: does not use Gender identity (if verbalized by the patient): Female Exam Narrative: GENERAL: Well-appearing, well-nourished, and in no acute distress. HEAD: Normocephalic, atraumatic. There is a port wine stain moon present on the right side of the face neck EYES: PERRLA and EOMI. ENT: Nares clear, no rhinorrhea or epistaxis. Mucous membranes moist. NECK: Supple. CHEST: Clear to auscultation. No respiratory distress. HEART: Regular rate and rhythm. No murmur heard. Normal peripheral pulses. ABDOMEN: Soft, nontender, nondistended, normal active bowel sounds. Back: Tenderness in the thoracic EXTREMITIES: Normal range of motion. No edema. SKIN: Warm, dry, no rash. NEURO: No focal deficit
[2022-07-25 01:21] LABS: Appearance Urine Cloudy (Clear); Bilirubin Urine Negative (Negative); Blood Urine 1+ (Negative); Color Urine Yellow (Yellow); Glucose Urine UA Negative (Negative); Ketones Urine Negative (Negative); Leukocyte Esterase Ur 1+ LEU/UL (Negative); Nitrate Urine Positive (Negative); Protein Urine 1+ mg/dL (Negative); Urobilinogen Urine 0.2 mg/dL (<2.0); pH Urine 6.5 (5.0-9.0)
[2022-07-25 01:25] LABS: Add Urine Microscopic? YES; Bacteria Urine Trace /hpf; Mucus Urine Rare /lpf; Squamous Epithelial Cell Urine Rare /hpf (Few); WBC Urine 51-75 /hpf
[2022-07-25 01:43] LABS: Influenza A QL RT-PCR Negative (Negative); Influenza B QL RT-PCR Negative (Negative); SARS-CoV-2 RNA PCR Negative
--- NOTE | 2022-07-25 14:00 | PC.NURSE ---
Called in regards to patients vitals signs and home medications not being restarted. No answer at this time.
--- NOTE | 2022-07-25 15:40 | PM.IMHP ---
H&P: HPI History of Present Illness Date/Time: 07/25/22 15:40 Chief Complaint: Acute back pain and fall Narrative: Pt fell on her back, in her apt, near kitchen stove while making her breakfast. pt states it was an accidental fall, fell out of her chair before, pts left leg is weak and gives way pt had a L total knee replacement on this side and uses a cane to walk. presently her back pain is lower back, pt uses morphine here in the hospital, pt was in [facility] before would like to go back. presently lives in [facility] with handicap aids. Pt has a albin on her face large hematoma on her lip and left face not related to fall. No other injuries mentioned. Pt is on blood thinners for DVT. hold anticoagulation in case of surgery Plain film x-rays no evidence of a new L1 fracture CT imaging of the lumbar spine was obtained which confirmed evidence of a L1 compression fracture.? There was retropulsion of fragments into the canal but the patient is not showing signs of acute nerve root compression.? The case was discussed with neurosurgery who recommended admitting the patient for pain control Review of Systems Review of Systems: Back pain Pt has control of urine and stool PMFSH Past Medical History Medical History DVT (deep venous thrombosis) DVT (deep venous thrombosis) History of melanoma HTN (hypertension) HTN (hypertension) Obesity Pulmonary embolism Surgical History Surgical History History of appendectomy History of cataract extraction History of hernia repair Total knee replacement status Family History Family History Sibling Family history of diabetes mellitus in first degree relative Mother Family history of diabetes mellitus in first degree relative, Onset Age: 66 Patient's mother is Other Cerebrovascular accident Social History Social History Smoking status: Never smoker Second hand tobacco smoke exposure: No Smoking end date: 06/03/71 Alcohol intake: never Substance use: never Substance use type: does not use Lack of Transportation: No Lack of Food: Never True Current Housing: I Have Housing Concerned About Future Housing: No Difficulty Paying Gas/Electric Bills: No Difficulty Paying for Meds: No Currently Unemployed: No Education: Bachelor's Degree Difficulty w/ Childcare or Family Care: No Gender identity (if verbalized by the patient): Female Spiritual care concerns: No Meds Home Medications and Allergies Home Medications Medication Instructions Recorded Confirmed Type metoprolol tartrate 50 mg tablet 50 mg PO Q12H 06/06/20 07/25/22 History amlodipine 10 mg tablet 10 mg PO DAILY 10/08/20 07/25/22 History ascorbate calcium (vitamin C) 500 500 mg PO DAILY 10/08/20 07/25/22 History mg capsule calcium carbonate 500 mg calcium 500 mg PO DAILY 10/08/20 07/25/22 History (1,250 mg) tablet (Calcium 500) cholecalciferol (vitamin D3) 125 125 mcg PO DAILY 10/08/20 07/25/22 History mcg (5,000 unit) tablet (Vitamin D3) vitamin B complex (B 1 tablet PO DAILY 10/08/20 07/25/22 History Complex-Vitamin B12 tablet) lisinopril 5 mg tablet 5 mg PO DAILY 12/29/20 07/25/22 History warfarin 3 mg tablet 5 mg PO HS 12/29/20 07/25/22 History Allergies Allergy/AdvReac Type Severity Reaction Status Date / Time adhesive Allergy Severe LOST SKIN Verified 08/07/21 13:52 LAST TIME,BLISTERS tetracycline Allergy Severe RASH Verified 08/07/21 13:52 sulfanilamide Allergy Unknown Unknown Verified 08/07/21 13:52 adhesive tape Allergy Rash Verified 08/07/21 13:52 Penicillins Allergy Hives Verified 08/07/21 13:52 Sulfa (Sulfonamide Allergy Hives Verified 08/07/21 13:52 Antibiotics) V
[2022-07-25] MEDS: ACETAMINOPHEN 325 MG TABLET 650 MG PO (18:24)
[2022-07-25] MEDS: traMADol HCL (*CRX) 50 MG TABLET PO (20:17)
[2022-07-25] MEDS: METOPROLOL TARTRATE 50 MG TAB PO (20:17)
[2022-07-26 06:00] VITALS: BP 142/80; PULSE 76; RESP 20; TEMP 36.3; O2SAT 95
[2022-07-26 07:32] LABS: Anion Gap 7 mmol/L (8-16); Blood Urea Nitrogen 18 mg/dL (7-17); Calcium 8.4 mg/dL (8.4-10.2); Carbon Dioxide 28 mmol/L (22-30); Chloride 106 mmol/L (98-107); Estimated CRCL calculation 63 ml/min; Estimated Glomerular Filt Rate > 60; Glucose 123 mg/dL (65-110); Potassium 3.1 mmol/L (3.4-5.0); Sodium 141 mmol/L (137-145)
[2022-07-26 10:06] VITALS: PULSE 77
[2022-07-26] MEDS: METOPROLOL TARTRATE 50 MG TAB PO ×2 (10:06→20:32)
[2022-07-26] MEDS: lisinopriL 5 MG TABLET PO (10:06)
[2022-07-26] MEDS: amLODIPine BESYLATE 5 MG TABLET 10 MG PO (10:06)
[2022-07-26] MEDS: VITAMIN B COMPLEX CAPSULE 1 CAP PO (10:07)
--- NOTE | 2022-07-26 10:32 | PCOTNOTE ---
Will complete OT evaluation following neuro surgery consult. Will follow.
--- NOTE | 2022-07-26 11:56 | PM.IMPN ---
Progress Note: A&P Assessment and Plan (1) Closed compression fracture of L1 vertebra: Code(s): S32.010A - Wedge compression fracture of first lumbar vertebra, initial encounter for closed fracture Status: Acute Assessment and Plan: Pain control, gently PT/ OT after consultation with orthopedics and or neurosurgery MD Continue iv morphine prn and tylenol 3 for pain (2) Chronic anticoagulation: Code(s): Z79.01 - MCFP (current) use of anticoagulants Status: Acute Assessment and Plan: can restart warfarin today (3) Hypokalemia: Code(s): E87.6 - Hypokalemia Status: Acute Assessment and Plan: Replace potassium Plan HTN Slightly high due to back pain Continue patient BP medications Watch BP in hospital Subjective Date/time seen: 07/26/22 11:56 Pt fell on her back, in her apt, near kitchen stove while making her breakfast. pt states it was an accidental fall, fell out of her chair before, pts left leg is weak and gives way pt had a L total knee replacement on this side and uses a cane to walk. presently her back pain is lower back, pt uses morphine here in the hospital, pt was in [facility] before would like to go back. presently lives in [facility] with handicap aids. Pt has a albin on her face large hematoma on her lip and left face not related to fall. No other injuries mentioned. Pt is on blood thinners for DVT. hold anticoagulation in case of surgery Awaiting to see orthopedics or neurosurgery Once cleared can start therapy and DC home with home health Review of Systems Review of Systems: Back pain 11/10 Exam Narrative: Exam Narrative: GE NERAL: mild distre ss HEAD: Normoceph alic, atraumatic. EYES: ? No redness or drainage.? Con junctiva are edison l. ENT: Mucous mem branes pink and mo ist.? CHEST: No re spiratory distress .? Clear to auscul tation. HEART: Reg ular rate and rhyt hm.? No murmur octavio reciated.? Normal peripheral pulses. SKIN: Small avuls ion to the left th umb NEURO: No foca l deficits.? Alert and oriented x3.? Low back TTP, 4/5 weakness on left leg PSYCH: Normal affect.? No signs of depression or anxiety. Objective Data Vital Signs Vital Signs: Vital Signs - 24 hr 07/25/22 14:00 07/25/22 20:00 07/25/22 22:00 Temperature 37.0 C 35.7 C L Pulse Rate 145 H 90 Respiratory Rate 24 H 20 Blood Pressure 142/92 H 134/118 H Pulse Oximetry 92 92 93 Oxygen Delivery Room Air 07/26/22 06:00 07/26/22 10:06 Temperature 36.3 C L Pulse Rate 76 77 Respiratory Rate 20 Blood Pressure 142/80 H Pulse Oximetry 95 Oxygen Delivery Intake/Output Intake/Output: Intake & Output 07/23/22 07/24/22 07/25/22 07/26/22 23:59 23:59 23:59 23:59 Intake Total 768 480 Output Total 250 Balance 768 230 Meds/Results Medications: Active Medications Generic Name Dose Route Start Last Admin Trade Name Freq PRN Reason Stop Dose Admin Acetaminophen 650 mg 07/25/22 18:11 07/25/22 18:24 Acetaminophen 325 Mg Tablet PO 650 mg Q6H PRN Administration Mild Pain (1-3) or Fever Amlodipine Besylate 10 mg 07/26/22 09:00 07/26/22 10:06 Amlodipine Besylate 5 Mg Tablet PO 10 mg DAILY NESSA Administration Lisinopril 5 mg 07/26/22 09:00 07/26/22 10:06 Lisinopril 5 Mg Tablet PO 5 mg DAILY NESSA Administration Metoprolol Tartrate 50 mg 07/25/22 14:40 07/26/22 10:06 Metoprolol Tartrate 50 Mg Tab PO 50 mg Q12HR NESSA Administration Tramadol HCl 50 mg 07/25/22 00:28 07/25/22 20:17 Tramadol Hcl (*Crx) 50 Mg Tablet PO 50 mg Q6H PRN Administration Pain Rated 4-6 Vitamin B Complex 1 cap 07/26/22 09:00 07/26/22 10:07 Vitamin B Complex Capsule PO 1 cap DAILY NESSA Administration Radiology Results: ITS Impressions Lumbar Spine X-Ray 07/24/22 22:04 IMPRESSION: Severe compression deformity at L1, new since the prior exam.
--- NOTE | 2022-07-26 12:01 | PCPTNOTE ---
Will complete PT evaluation following neuro surgery consult per ordering physician. Will follow.
[2022-07-26 12:41] LABS: INR 1.9; Prothrombin Time 20.9 Seconds (11.1-14.7)
[2022-07-26] MEDS: polyethylene glycoL 3350 17 GM POWD.PACK PO (13:41)
[2022-07-26 13:58] VITALS: BP 146/76; PULSE 70; RESP 20; TEMP 36.5; O2SAT 94
[2022-07-26] MEDS: WARFARIN (*PBKC) 4 MG TABLET PO (18:17)
[2022-07-26 20:00] VITALS: O2SAT 94
[2022-07-26 20:30] VITALS: BP 156/75; PULSE 76; RESP 18; TEMP 36.5; O2SAT 95
[2022-07-26] MEDS: traMADol HCL (*CRX) 50 MG TABLET PO (20:31)
[2022-07-26 22:00] VITALS: BP 149/77; PULSE 68; RESP 18; TEMP 37.5; O2SAT 94
--- NOTE | 2022-07-27 04:29 | PC.NURSE ---
Spoke with Dr. Barr about patient's UA being E. Coli positive. Dr. Barr asked if patient was having any discomfort or abdominal pain and if she had any fevers or chills. Patient did not. Dr. Barr says to relay to day shift as patient does not sound like she currently needs antibiotics.
[2022-07-27 06:00] VITALS: BP 151/85; PULSE 66; RESP 16; TEMP 36.6; O2SAT 94
[2022-07-27 06:48] LABS: INR 1.9
[2022-07-27 07:52] LABS: Hematocrit 39.9 % (37.0-47.0); Hemoglobin 13.6 g/dL (12.0-15.0); Mean Corpuscular HGB Conc 34.1 g/dl (32-36); Mean Corpuscular Volume 85.1 fl (80-100); Mean Platelet Volume 10.1 fl (7.4-10.4); Platelet Count Result 213 k/mm3 (150-375); Red Blood Count 4.69 M/mm3 (4.2-5.4); White Blood Count 6.6 K/mm3 (4.5-10.0)
[2022-07-27 08:02] LABS: Anion Gap 7 mmol/L (8-16); Blood Urea Nitrogen 17 mg/dL (7-17); Calcium 8.5 mg/dL (8.4-10.2); Carbon Dioxide 27 mmol/L (22-30); Chloride 105 mmol/L (98-107); Estimated CRCL calculation 73 ml/min; Estimated Glomerular Filt Rate > 60; Glucose 117 mg/dL (65-110); Potassium 2.9 mmol/L (3.4-5.0); Sodium 139 mmol/L (137-145)
[2022-07-27] MEDS: VITAMIN B COMPLEX CAPSULE 1 CAP PO (09:01)
[2022-07-27] MEDS: polyethylene glycoL 3350 17 GM POWD.PACK PO (09:01)
[2022-07-27] MEDS: amLODIPine BESYLATE 5 MG TABLET 10 MG PO (09:01)
[2022-07-27] MEDS: lisinopriL 5 MG TABLET PO (09:01)
[2022-07-27] MEDS: POTASSIUM CHLORIDE 20 MEQ TABLET 40 MEQ PO ×2 (09:10→11:52)
[2022-07-27 09:11] VITALS: PULSE 80
[2022-07-27] MEDS: METOPROLOL TARTRATE 50 MG TAB PO ×2 (09:11→21:14)
--- NOTE | 2022-07-27 09:17 | PM.IMPN ---
Progress Note: A&P Assessment and Plan (1) Closed compression fracture of L1 vertebra: Code(s): S32.010A - Wedge compression fracture of first lumbar vertebra, initial encounter for closed fracture Status: Acute Assessment and Plan: sustained from mechanical fall lumbar spine CT showed likely acute moderate burst fracture of L1 with 3 mm retropulsion of osseous fragments into the spinal canal appreciate Neurosurgical consultation supportive care continue with acetaminophen and tramadol for pain control appreciate PT/ OT eval implement fall precautions (2) UTI (urinary tract infection): Code(s): N39.0 - Urinary tract infection, site not specified Status: Acute Assessment and Plan: UA is abnormal on presentation patient endorses urinary frequency Urine culture with growth of >100k E coli begin IV ceftriaxone while awaiting susceptibility report (3) Chronic anticoagulation: Code(s): Z79.01 - custodial (current) use of anticoagulants Status: Acute Assessment and Plan: patient maintained on warfarin due to history of PE and DVT warfarin held on admission and resumed yesterday 07/26 INR is 1.9 today, likely subtherapeutic due to holding warfarin anticipate INR to become therapeutic with continued scheduled dosing. No need for dose adjustment at this time no evidence of bleeding (4) Hypokalemia: Code(s): E87.6 - Hypokalemia Status: Acute Assessment and Plan: potassium is 2.9 today will give 40 mEq p.o. KCl this morning and an additional 40 mEq this afternoon check magnesium monitor labs (5) HTN (hypertension): Code(s): I10 - Essential (primary) hypertension Status: Acute Assessment and Plan: blood pressures reviewed and are stable, slightly elevated. Last BP 151/85 continue home amlodipine, lisinopril, metoprolol tartrate BP may be elevated due to pain monitor BP trends Subjective Date/time seen: 07/27/22 09:17 Interval history: date of service: 07/27/2022 Dorene Tapia is an 82-year-old female with a history of PE, DVT on warfarin, and melanoma who is seen in follow-up for L1 compression fracture. Patient states that she is doing better at this time. At rest her back pain is controlled and she currently rates it 2-3/10. She has been able to get up and ambulate, however this does result in increased pain that she rates as 8/10. She states that she is very motivated to participate in therapy in order to go back home which is her ultimate goal. She has not had any other issues at this time. Denies leg pain. Denies shortness of breath, cough, chest pain, nausea, vomiting, fever or chills. Denies any episodes of bleeding. Reports having a regular bowel movement today. She is tolerating her diet. She endorses urinary frequency but denies dysuria or hematuria. She states that she plans to eat everything on her tray besides the [employer] milk because she got sick on this as a child when a worker contaminated a batch of butter. Review of Systems Review of Systems: All systems reviewed & are unremarkable except as noted in HPI and below Exam Narrative: General: obese, well-appearing 82-year-old female, sitting up in bed, comfortable, NARD Neuro: awake, alert and oriented x4, speech clear, no focal neuro deficits noted HEENMT: normocephalic, atraumatic, EOMI, sclerae anicteric, bottom lip and chin chronically edematous and discolored Respiratory: clear to auscultation bilaterally, nonlabored breathing Cardio: regular rate, regular rhythm with S1-S2 Abdomen: nondistended, normoactive bowel sounds, soft, nontender to palpation Extremities: no edema, erythema, or tenderness to palpation, DP pulses 2+ bilaterally Skin: chronic right-sided facial discoloration, no rashes or lesions, warm and dry Psych: appropriate mood and affect, judgment and insight intact Objectiv
[2022-07-27 10:10] LABS: Magnesium 2.1 mg/dL (1.6-2.3)
[2022-07-27] MEDS: traMADol HCL (*CRX) 50 MG TABLET PO (11:51)
[2022-07-27 14:00] VITALS: BP 134/80; PULSE 69; RESP 22; TEMP 35.8; O2SAT 93
--- NOTE | 2022-07-27 16:15 | PCPTNOTE ---
Continuing to wait for neurosurgery consult per Ordering physician prior to initiating PT. Will follow
[2022-07-27] MEDS: WARFARIN (*PBKC) 4 MG TABLET PO (17:43)
[2022-07-27 21:57] VITALS: BP 160/83; PULSE 76; RESP 18; TEMP 36.9; O2SAT 97
[2022-07-28] MEDS: ACETAMINOPHEN 325 MG TABLET 650 MG PO ×2 (04:11→17:35)
[2022-07-28] MEDS: traMADol HCL (*CRX) 50 MG TABLET PO ×2 (04:12→17:35)
--- NOTE | 2022-07-28 05:56 | PC.NURSE ---
Patient reports right sided rib pain after getting up to BR several times. Patient medicated with good result. Dr. Solomon made aware. CT from previous admission showed old trauma of mid right thorax. Patient has had numerous falls since March 2022. Patient denies any further symptoms at this time. No new orders at this time.
[2022-07-28 06:00] VITALS: BP 151/80; PULSE 67; RESP 18; TEMP 36.1; O2SAT 95
[2022-07-28 07:48] LABS: INR 1.9; Prothrombin Time 21.4 Seconds (11.1-14.7)
--- NOTE | 2022-07-28 07:50 | PCPTNOTE ---
Continuing to wait for neurosurgery consult per ordering physician prior to initiating PT. Will follow
--- NOTE | 2022-07-28 08:15 | PCOTNOTE ---
Continuing to wait for neurosurgery consult per ordering physician prior to initiating OT. Will follow
[2022-07-28 09:25] VITALS: PULSE 77
[2022-07-28] MEDS: METOPROLOL TARTRATE 50 MG TAB PO ×2 (09:25→20:38)
[2022-07-28] MEDS: VITAMIN B COMPLEX CAPSULE 1 CAP PO (09:25)
[2022-07-28] MEDS: amLODIPine BESYLATE 5 MG TABLET 10 MG PO (09:25)
[2022-07-28] MEDS: lisinopriL 5 MG TABLET PO (09:25)
[2022-07-28] MEDS: polyethylene glycoL 3350 17 GM POWD.PACK PO (09:26)
--- NOTE | 2022-07-28 11:53 | PM.DS ---
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 She was found to have an L1 compression fracture. Neurosurgery was consulted and recommended pain control and no further intervention necessary. Patient also found to have a UTI started on antibiotics. She was transitioned to oral antibiotics with cefdinir. She did quite well on tramadol will be discharged on this medication. Time Spent with Patient Time attestation: Total time spent providing and/or coordinating discharge services: DS: Data Data Completed and Pending Labs on day of discharge: Labs from last 24 hours 07/28/22 07:25 PT 21.4 H INR 1.9 Discharge Plan Discharge Attending physician on discharge: Janessa Kenney Consulting providers: Lyle Sweet Discharging Clinician: Janessa Kenney Patient Disposition: SNF Activity: as tolerated Diet: as tolerated Discharge Instructions: Per Care Coordination, pt. will discharge home with [facility] for continued PT/OT. [facility] will contact pt. at time of D/C. Patient Instructions: Warfarin (By mouth), Fall Prevention for Older Adults (DC) Stand Alone Forms: General Discharge Information Discharge Medications: New tramadol 50 mg Tablet 50 mg PO Q6H PRN (Reason: Pain Rated 4-6) Qty: 90 0RF polyethylene glycol 3350 [Miralax] 17 gram Powder In Packet 17 g PO QAM PRN (Reason: constipation) 30 Days Qty: 30 0RF cefdinir 300 mg Capsule 300 mg PO Q12HR 5 Days Qty: 10 0RF Continued amlodipine 10 mg tablet 10 mg PO DAILY calcium carbonate [Calcium 500] 500 mg calcium (1,250 mg) Tablet 500 mg PO DAILY vitamin B complex [B Complex-Vitamin B12] Tablet 1 tablet PO DAILY ascorbate calcium (vitamin C) 500 mg Capsule 500 mg PO DAILY cholecalciferol (vitamin D3) [Vitamin D3] 125 mcg (5,000 unit) Tablet 125 mcg PO DAILY metoprolol tartrate 50 mg tablet 50 mg PO Q12H warfarin 3 mg tablet 5 mg PO HS lisinopril 5 mg tablet 5 mg PO DAILY Date of admission: 07/25/22 00:28 Primary Care Provider: Cole Lewis Admitting Provider: Juliana Lunsford Attending physician on admission: Jo Ann Quiroga Condition: Stable
[2022-07-28] MEDS: CEFDINIR 300 MG CAPSULE PO ×2 (13:17→20:38)
[2022-07-28 14:00] VITALS: BP 139/86; PULSE 69; RESP 16; TEMP 36.6; O2SAT 95
[2022-07-28] MEDS: WARFARIN (*PBKC) 4 MG TABLET PO (17:36)
--- NOTE | 2022-07-28 17:54 | PC.NURSE ---
Patient order for Discharge pending Neurosurgery to see, called container finishing inspector Dr. Salazar. Pending [facility] approval still to DC at this time. Patient also does not have a ride at this time of day to go home, she states her sister in law cannot drive in the dark, and other family is too far away at this time. She states, possibly she can call her bench tool maker to arrange for transportation home.
--- NOTE | 2022-07-28 18:17 | PC.NURSE ---
Addendum entered by Ligia Coffman RN 07/28/22 18:34: Per Dr. Kenney Neurosurgery still needs to come see Patient before PT/OT can see and DC. Flavio MCDOWELL call centre supervisor called, left message. Original Note: Call out to Dr. Kenney r/t PT unable to secure ride for way home, cannot ambulate with out w/w , PT does not have a w/w at home. Will continue to monitor for DC.
[2022-07-28 21:10] VITALS: BP 133/70; PULSE 65; RESP 18; TEMP 36.6; O2SAT 95
[2022-07-29 05:35] VITALS: BP 148/83; PULSE 64; RESP 18; TEMP 36.6; O2SAT 98
[2022-07-29 07:55] LABS: Alanine Aminotransferase 11 U/L (6-35); Albumin Level 3.8 g/dL (3.5-5.1); Alkaline Phosphatase 81 U/L (38-126); Anion Gap 8 mmol/L (8-16); Aspartate Amino Transferase 18 U/L (14-36); Bilirubin,Total 0.7 mg/dL (0.2-1.3); Blood Urea Nitrogen 18 mg/dL (7-17); Calcium 8.7 mg/dL (8.4-10.2); Carbon Dioxide 20 mmol/L (22-30); Chloride 106 mmol/L (98-107); Estimated CRCL calculation 63 ml/min; Estimated Glomerular Filt Rate > 60; Glucose 98 mg/dL (65-110); Potassium 3.6 mmol/L (3.4-5.0); Sodium 134 mmol/L (137-145)
[2022-07-29 08:06] LABS: Basophils Absolute Auto 0.1 K/mm3 (0.0-0.1); Eosinophils Absolute Auto 0.2 K/mm3 (0-0.3); Eosinophils Percent Auto 3.3 % (0-4.4); Hematocrit 42.9 % (37.0-47.0); Hemoglobin 13.8 g/dL (12.0-15.0); Immature Granulocyte Absolute 0.02 K/mm3 (0.00-0.031); Immature Granulocyte Percent A 0.3 % (0-0.5); Lymphocytes Absolute Auto 0.97 K/mm3 (0.9-3.2); Lymphocytes Percent Auto 16.6 % (18.3-44.2); Mean Corpuscular HGB Conc 32.2 g/dl (32-36); Mean Corpuscular Hemoglobin 28.6 pg (26-34); Mean Platelet Volume 9.6 fl (7.4-10.4); Monocytes Absolute Auto 0.8 K/mm3 (0.1-0.6); Monocytes Percent Auto 14.2 % (2.6-8.5); Neutrophils Absolute Auto 3.8 K/mm3 (1.3-6.7); Neutrophils Percent Auto 64.6 % (45.5-73.1); Platelet Count Result 258 k/mm3 (150-375); Red Blood Count 4.82 M/mm3 (4.2-5.4); Red Cell Distribution Width 13.2 % (11.5-14.5); White Blood Count 5.8 K/mm3 (4.5-10.0)
[2022-07-29 08:26] LABS: Prothrombin Time 22.2 Seconds (11.1-14.7)
[2022-07-29 09:11] VITALS: PULSE 64
[2022-07-29] MEDS: CEFDINIR 300 MG CAPSULE PO ×2 (09:11→20:13)
[2022-07-29] MEDS: amLODIPine BESYLATE 5 MG TABLET 10 MG PO (09:11)
[2022-07-29] MEDS: METOPROLOL TARTRATE 50 MG TAB PO ×2 (09:11→20:13)
[2022-07-29] MEDS: lisinopriL 5 MG TABLET PO (09:11)
[2022-07-29] MEDS: VITAMIN B COMPLEX CAPSULE 1 CAP PO (09:11)
[2022-07-29] MEDS: traMADol HCL (*CRX) 50 MG TABLET PO (13:48)
[2022-07-29 14:00] VITALS: BP 145/76; PULSE 63; RESP 14; TEMP 35.9; O2SAT 95
--- NOTE | 2022-07-29 16:30 | PCPTNOTE ---
Continuing to wait for neurosurgery consult per ordering physician prior to initiating PT. Will follow
[2022-07-29] MEDS: WARFARIN (*PBKC) 4 MG TABLET PO (17:00)
--- NOTE | 2022-07-29 17:21 | PC.NURSE ---
patient states having a difficult time finding a ride. Patient also has concerns about getting a walker this late on a saturday. Dr. Kenney notified. She states that patient had the same concerns yesterday when she was discharged and that is why she ended up staying until today. Dr. Kenney states that patient is discharged from her preceptive unless that patient would prefer to go to SNF.
[2022-07-29 20:13] VITALS: PULSE 69
[2022-07-29 21:27] VITALS: BP 152/93; PULSE 77; RESP 16; TEMP 36.1; O2SAT 94
[2022-07-30 05:39] VITALS: BP 154/75; PULSE 65; RESP 16; TEMP 36.6; O2SAT 97
[2022-07-30 06:14] LABS: Basophils Absolute Auto 0.1 K/mm3 (0.0-0.1); Eosinophils Absolute Auto 0.2 K/mm3 (0-0.3); Eosinophils Percent Auto 3.6 % (0-4.4); Hematocrit 43.7 % (37.0-47.0); Hemoglobin 14.3 g/dL (12.0-15.0); Immature Granulocyte Absolute 0.02 K/mm3 (0.00-0.031); Immature Granulocyte Percent A 0.3 % (0-0.5); Lymphocytes Absolute Auto 0.95 K/mm3 (0.9-3.2); Lymphocytes Percent Auto 16.1 % (18.3-44.2); Mean Corpuscular HGB Conc 32.7 g/dl (32-36); Mean Corpuscular Hemoglobin 28.9 pg (26-34); Mean Corpuscular Volume 88.5 fl (80-100); Mean Platelet Volume 9.2 fl (7.4-10.4); Monocytes Absolute Auto 0.8 K/mm3 (0.1-0.6); Monocytes Percent Auto 13.2 % (2.6-8.5); Neutrophils Absolute Auto 3.9 K/mm3 (1.3-6.7); Neutrophils Percent Auto 65.8 % (45.5-73.1); Platelet Count Result 259 k/mm3 (150-375); Red Blood Count 4.94 M/mm3 (4.2-5.4); White Blood Count 5.9 K/mm3 (4.5-10.0)
[2022-07-30 06:22] LABS: INR 1.8; Prothrombin Time 20.2 Seconds (11.1-14.7)
[2022-07-30 06:43] LABS: Alanine Aminotransferase 13 U/L (6-35); Albumin Level 4.2 g/dL (3.5-5.1); Alkaline Phosphatase 88 U/L (38-126); Anion Gap 6 mmol/L (8-16); Aspartate Amino Transferase 24 U/L (14-36); Bilirubin,Total 0.7 mg/dL (0.2-1.3); Blood Urea Nitrogen 13 mg/dL (7-17); Calcium 9.2 mg/dL (8.4-10.2); Carbon Dioxide 29 mmol/L (22-30); Chloride 102 mmol/L (98-107); Estimated CRCL calculation 73 ml/min; Estimated Glomerular Filt Rate > 60; Glucose 105 mg/dL (65-110); Potassium 4.1 mmol/L (3.4-5.0); Sodium 137 mmol/L (137-145)
[2022-07-30 09:03] VITALS: PULSE 68
[2022-07-30] MEDS: CEFDINIR 300 MG CAPSULE PO (09:03)
[2022-07-30] MEDS: VITAMIN B COMPLEX CAPSULE 1 CAP PO (09:03)
[2022-07-30] MEDS: lisinopriL 5 MG TABLET PO (09:03)
[2022-07-30] MEDS: amLODIPine BESYLATE 5 MG TABLET 10 MG PO (09:03)
[2022-07-30] MEDS: METOPROLOL TARTRATE 50 MG TAB PO (09:03)
--- NOTE | 2022-07-30 09:42 | PCPTNOTE ---
Called hospitalist about neurosurgery consult pending. Per Dr. Kenney, neurosurgery recommended pain control and follow up in outpatient. Dr. Kenney OK therapy to see pt.
== END 2022-07-30 14:30 | disposition home health service (06) ==
LOC: ANHED 07-25 00:28 → ANH3MEDSUR 07-25 16:50
PROVIDERS: Internal Medicine; Student in an Organized Health Care Education/Training Program; Admitting Provider Family Medicine; Emergency Provider Emergency Medicine; PCP Family Medicine; Visit Provider Physician Assistant
DX: S32.010A Wedge compression fracture of first lumbar vertebra, initial encounter for closed fracture (principal); W19.XXXA Unspecified fall, initial encounter; N39.0 Urinary tract infection, site not specified; B96.20 Unspecified Escherichia coli [E. coli] as the cause of diseases classified elsewhere; E87.6 Hypokalemia; M85.80 Other specified disorders of bone density and structure, unspecified site; I10 Essential (primary) hypertension; E66.9 Obesity, unspecified; Z20.822 Contact with and (suspected) exposure to COVID-19; Z68.33 Body mass index [BMI] 33.0-33.9, adult; Z87.891 Personal history of nicotine dependence; Z96.652 Presence of left artificial knee joint; Z85.820 Personal history of malignant melanoma of skin; Z86.711 Personal history of pulmonary embolism; Z86.718 Personal history of other venous thrombosis and embolism; Z79.01 Long term (current) use of anticoagulants; Z79.899 Other long term (current) drug therapy
CPT/HCPCS: 36415; 72100; 72131; 80048; 80053; 81001; 83735; 85025; 85027; 85610; 85730; 87077; 87086; 87186; 87636; 96365; 96366; 96374; 96375; 97161; 97165; 97530; 99285; A9270; G0378; J0696; J2270

== ENCOUNTER 2022-08-21 10:27 | Outpatient (CLI) | payer MEDICARE, MEDICAID, SELFPAY ==
[2022-08-21 11:16] LABS: INR 2.8; Prothrombin Time 28.8 Seconds (11.1-14.7)
== END 2022-08-21 10:28 | disposition home or self-care (01) ==
PROVIDERS: PCP Family Medicine; Visit Provider Family Medicine
DX: Z51.81 Encounter for therapeutic drug level monitoring (principal); Z79.01 Long term (current) use of anticoagulants; Z86.711 Personal history of pulmonary embolism
CPT/HCPCS: 36415; 85610; 85730

== ENCOUNTER 2022-09-12 08:35 | Outpatient (CLI) | payer MEDICARE, MEDICAID, SELFPAY ==
[2022-09-12 09:06] LABS: Basophils Absolute Auto 0.1 K/mm3 (0.0-0.1); Basophils Percent Auto 1.1 % (0.2-1.2); Eosinophils Absolute Auto 0.1 K/mm3 (0-0.3); Hematocrit 43.4 % (37.0-47.0); Immature Granulocyte Absolute 0.01 K/mm3 (0.00-0.031); Immature Granulocyte Percent A 0.2 % (0-0.5); Lymphocytes Absolute Auto 0.82 K/mm3 (0.9-3.2); Lymphocytes Percent Auto 18.9 % (18.3-44.2); Mean Corpuscular HGB Conc 32.3 g/dl (32-36); Mean Corpuscular Hemoglobin 28.9 pg (26-34); Mean Corpuscular Volume 89.7 fl (80-100); Mean Platelet Volume 9.7 fl (7.4-10.4); Monocytes Absolute Auto 0.5 K/mm3 (0.1-0.6); Monocytes Percent Auto 10.6 % (2.6-8.5); Neutrophils Absolute Auto 2.9 K/mm3 (1.3-6.7); Neutrophils Percent Auto 66.2 % (45.5-73.1); Platelet Count Result 242 k/mm3 (150-375); Red Blood Count 4.84 M/mm3 (4.2-5.4); Red Cell Distribution Width 13.1 % (11.5-14.5); White Blood Count 4.4 K/mm3 (4.5-10.0)
[2022-09-12 09:38] LABS: Alanine Aminotransferase 15 U/L (6-35); Albumin Level 4.5 g/dL (3.5-5.1); Alkaline Phosphatase 91 U/L (38-126); Anion Gap 11 mmol/L (8-16); Aspartate Amino Transferase 19 U/L (14-36); Blood Urea Nitrogen 15 mg/dL (7-17); Calcium 9.4 mg/dL (8.4-10.2); Carbon Dioxide 21 mmol/L (22-30); Chloride 108 mmol/L (98-107); Cholesterol 234 mg/dL (0-200); Estimated Glomerular Filt Rate > 60; Glucose 115 mg/dL (65-110); HDL Direct 46 mg/dL; LDL Cholesterol Direct 127 mg/dL; Potassium 4.1 mmol/L (3.4-5.0); Sodium 140 mmol/L (137-145); Triglycerides 169 mg/dL (<150)
[2022-09-12 09:39] LABS: Hemoglobin A1C 5.6 % (<5.7)
[2022-09-12 09:50] LABS: Free T4 Free Thyroxine 1.46 ng/mL (0.78-2.19); Vitamin D 25 Hydroxy 44.1 ng/mL
[2022-09-12 10:04] LABS: Total Triiodothyronine (T3) 1.27 NG/ML (0.97-1.69)
== END 2022-09-12 08:36 | disposition home or self-care (01) ==
PROVIDERS: PCP Family Medicine; Visit Provider Nurse Practitioner Adult Health
DX: I10 Essential (primary) hypertension (principal); R53.83 Other fatigue; R73.03 Prediabetes; E78.5 Hyperlipidemia, unspecified; R53.1 Weakness; Z13.0 Encounter for screening for diseases of the blood and blood-forming organs and certain disorders involving the immune mechanism; Z13.6 Encounter for screening for cardiovascular disorders; E55.9 Vitamin D deficiency, unspecified
CPT/HCPCS: 36415; 80053; 80061; 82306; 83036; 84439; 84443; 84480; 85025

== ENCOUNTER 2022-10-23 09:17 | Outpatient (CLI) | payer MEDICARE, SELFPAY ==
[2022-10-23 10:02] LABS: INR 1.9; Prothrombin Time 23.3 Seconds (11.1-14.7)
== END 2022-10-23 09:18 | disposition home or self-care (01) ==
PROVIDERS: Nurse Practitioner Adult Health; PCP Family Medicine; Visit Provider Family Medicine
DX: R79.1 Abnormal coagulation profile (principal); Z79.01 Long term (current) use of anticoagulants
CPT/HCPCS: 36415; 85610

== ENCOUNTER 2022-10-25 06:37 | Outpatient (CLI) | payer MEDICARE, SELFPAY ==
[2022-10-25 07:31] LABS: Partial Thromboplastin Time 36.9 SECONDS (22.3-36.8)
== END 2022-10-25 06:38 | disposition home or self-care (01) ==
PROVIDERS: PCP Family Medicine; Visit Provider Family Medicine
DX: R79.1 Abnormal coagulation profile (principal); Z79.01 Long term (current) use of anticoagulants
CPT/HCPCS: 36415; 85730

== ENCOUNTER 2023-01-22 06:35 | Outpatient (CLI) | payer MEDICARE, SELFPAY ==
--- NOTE | 2023-01-22 07:11 | ECG_ITS ---
Measurements Intervals [place] Rate: 66 P: 70 RI: 201 QRS: -40 QRSD: 107 T: 20 QT: 439 QTc: 462 Interpretive Statements SINUS RHYTHM MARKED LEFT AXIS DEVIATION [QRS AXIS < -30] POSSIBLE ANTERIOR MYOCARDIAL INFARCTION , OF INDETERMINATE AGE [30 ms Q WAVE IN V3/V4, OR R < 0.2 mV IN V4] COMPARED TO ECG 06/12/2022 14:29:41 NO SIGNIFICANT CHANGES Electronically Signed On 01-22-2023 11:22:10 CDT by Divine Livingston M.D.
== END 2023-01-22 06:36 | disposition home or self-care (01) ==
LOC: ANHCARD 06:37
PROVIDERS: PCP Family Medicine; Visit Provider Nurse Practitioner Adult Health
DX: R00.1 Bradycardia, unspecified (principal)
CPT/HCPCS: 93005

== ENCOUNTER 2023-07-09 13:13 | Observation (INO) | payer MEDICARE, MEDICAID, SELFPAY ==
[2023-07-09] VITALS (14 sets, daily range): BP systolic 124–149; BP diastolic 66–94; PULSE 62–135; RESP 15–18; TEMP 36.4; O2SAT 96–99; BMI 30.4
--- NOTE | ~2023-07-09 | XR_ITS ---
EXAMINATION: XR chest 1V portable INDICATION: Syncope, new onset atrial fibrillation TECHNIQUE: Portable AP chest at 1428 hours COMPARISON: 06/12/2022 FINDINGS: The lungs are free of acute opacities. No pleural effusion or pneumothorax. The cardiomedia stinal silhouette is normal. IMPRESSION: 1. No acute cardiopulmonary abnormality. Reviewed, dictated and finalized at location L. RVISOR OF RESEARCH
--- NOTE | ~2023-07-09 | XR_ITS ---
EXAMINATION: XR tibia fibula RT 2V INDICATION: Right leg pain and bruising TECHNIQUE: Two views of the right tibia and fibula are obtained on three radiographs. COMPARISON: 03/08/2021 FINDINGS: Bone alignment is normal. There is no fracture. There is severe osteoarthritis of the knee. IMPRESSION: 1. No acute osseous abnormality. Reviewed, dictated and finalized at location L. [place] MEDIA STRATEGIST
--- NOTE | ~2023-07-09 | CT_ITS ---
EXAMINATION: CT brain wo con DATE: 07/09/2023 13:56 INDICATION: Syncope. Fall. TECHNIQUE: Computed tomography (CT) of the head was performed without intravenous contrast. The mA wa s adjusted according to patient size. Iterative reconstruction technique was employed. The dose-lengt h product was 605.33 mGy-cm. COMPARISON: None FINDINGS: There are scattered areas of low attenuation in the cerebral white matter. There is no intr acranial hemorrhage, acute infarction, or abnormal intracranial mass lesion. The ventricles are edison l in size. There is mild mucosal thickening in the paranasal sinuses. There are likely changes of ocu lar lens replacement surgeries. The mastoid air cells are normal. IMPRESSION: 1. Moderate nonspecific cerebral white matter disease, which likely represents chronic small vessel i schemic disease. Reviewed, dictated and finalized at location A. HYSICAL PARTY CHIEF IMPRESSION: 1. Moderate nonspecific cerebral white matter disease, which likely represents chronic small vessel ischemic disease.
--- NOTE | 2023-07-09 13:24 | ECG_ITS ---
Measurements Intervals [place] Rate: 79 P: ID: 0 QRS: -41 QRSD: 106 T: 3 QT: 381 QTc: 439 Interpretive Statements ATRIAL FIBRILLATION MARKED LEFT AXIS DEVIATION [QRS AXIS < -30] MINIMAL VOLTAGE CRITERIA FOR LVH, CONSIDER NORMAL VARIANT [MEETS CRITERIA IN ONE OF: R(aVL), S(V1), R(V5), R(V5/V6)+S(V1)] POSSIBLE ANTERIOR MYOCARDIAL INFARCTION , PROBABLY OLD [30 ms Q WAVE IN V3/V4, OR R < 0.2 mV IN V4] COMPARED TO ECG 01/22/2023 07:21:08 ATRIAL FIBRILLATION NOW PRESENT Electronically Signed On 07-09-2023 13:53:39 WILDLIFE MANAGEMENT PROFESSOR by Divine Livingston M.D.
--- NOTE | 2023-07-09 13:31 | PC.NURSE ---
BS 162
[2023-07-09 13:34] LABS: Glucose Point of Care 162 mg/dl (65-105)
[2023-07-09 13:39] LABS: Basophils Absolute Auto 0.1 K/mm3 (0.0-0.1); Basophils Percent Auto 0.9 % (0.2-1.2); Eosinophils Absolute Auto 0.2 K/mm3 (0-0.3); Hematocrit 41.4 % (37.0-47.0); Hemoglobin 13.4 g/dL (12.0-15.0); Immature Granulocyte Absolute 0.01 K/mm3 (0.00-0.031); Immature Granulocyte Percent A 0.2 % (0-0.5); Lymphocytes Absolute Auto 1.24 K/mm3 (0.9-3.2); Lymphocytes Percent Auto 22.9 % (18.3-44.2); Mean Corpuscular HGB Conc 32.4 g/dl (32-36); Mean Corpuscular Volume 89.6 fl (80-100); Mean Platelet Volume 10.1 fl (7.4-10.4); Monocytes Absolute Auto 0.6 K/mm3 (0.1-0.6); Monocytes Percent Auto 11.4 % (2.6-8.5); Neutrophils Absolute Auto 3.3 K/mm3 (1.3-6.7); Neutrophils Percent Auto 61.6 % (45.5-73.1); Platelet Count Result 210 k/mm3 (150-375); Red Blood Count 4.62 M/mm3 (4.2-5.4); White Blood Count 5.4 K/mm3 (4.5-10.0)
[2023-07-09 13:51] LABS: Alanine Aminotransferase 12 U/L (6-35); Albumin Level 4.2 g/dL (3.5-5.1); Alkaline Phosphatase 64 U/L (38-126); Anion Gap 9 mmol/L (8-16); Aspartate Amino Transferase 20 U/L (14-36); Bilirubin,Total 0.7 mg/dL (0.2-1.3); Blood Urea Nitrogen 18 mg/dL (7-17); Calcium 9.6 mg/dL (8.4-10.2); Carbon Dioxide 21 mmol/L (22-30); Chloride 111 mmol/L (98-107); Estimated CRCL calculation 61 ml/min; Estimated Glomerular Filt Rate > 60; Glucose 156 mg/dL (65-110); Potassium 3.4 mmol/L (3.4-5.0); Sodium 141 mmol/L (137-145)
--- NOTE | 2023-07-09 14:05 | ED.DIZZY ---
HPI - Dizziness General Chief Complaint: Syncope Stated Complaint: syncopy Time Seen by Provider: 07/09/23 13:32 History of Present Illness HPI Narrative: Patient is an 83-year-old female with a history of PE on warfarin, hypertension presenting after syncopal event. Patient states that she was at her community center getting ready to play bingo. She was looking at her cards when she started to feel lightheaded and then had a syncopal event. States that she then woke up in return to baseline. No chest pain or shortness of breath. No palpitations, diaphoresis, nausea. No leg swelling. Patient denies any complaints and states that she feels well and would like to go. Related Data Home Medications Medication Instructions Recorded Confirmed metoprolol tartrate 50 mg tablet 25 mg PO Q12H 06/06/20 07/09/23 amlodipine 10 mg tablet 10 mg PO DAILY 10/08/20 07/09/23 lisinopril 5 mg tablet 5 mg PO DAILY 12/29/20 07/09/23 warfarin 3 mg tablet 5 mg PO HS 12/29/20 07/09/23 lovastatin 20 mg tablet 20 mg PO QHS 07/09/23 07/09/23 Allergies Allergy/AdvReac Type Severity Reaction Status Date / Time adhesive Allergy Severe LOST SKIN Verified 08/07/21 13:52 LAST TIME,BLISTERS tetracycline Allergy Severe RASH Verified 08/07/21 13:52 sulfanilamide Allergy Unknown Unknown Verified 08/07/21 13:52 adhesive tape Allergy Rash Verified 08/07/21 13:52 Penicillins Allergy Hives Verified 08/07/21 13:52 Sulfa (Sulfonamide Allergy Hives Verified 08/07/21 13:52 Antibiotics) Review of Systems Review of Systems: All systems reviewed & are unremarkable except as noted in HPI and below PMFSH Past Medical History Medical History Basal cell carcinoma (BCC) of lower back Chronic anticoagulation Closed compression fracture of L1 vertebra DVT (deep venous thrombosis) Hemangioma of face History of melanoma HTN (hypertension) Obesity Pulmonary embolism Surgical History Surgical History History of appendectomy History of cataract extraction History of hernia repair Total knee replacement status Family History Family History Sibling Family history of diabetes mellitus in first degree relative Mother Family history of diabetes mellitus in first degree relative, Onset Age: 66 Patient's mother is Other Cerebrovascular accident Social History Social History (Updated 07/10/23 @ 09:40 by Erika Woodall MD) Social History: Lives in a chcf apartment, [employer]. 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 Closest relative is her friend and ex [id number] Samantha Burkett. Smoking status: Never smoker Second hand tobacco smoke exposure: No Smoking end date: 06/03/71 Alcohol intake: never Substance use: never Substance use type: does not use Do You Feel Safe in your Home?: Yes Lack of Transportation: No Lack of Food: Never True Current Housing: I Have Housing Concerned About Future Housing: No Difficulty Paying Gas/Electric Bills: No Difficulty Paying for Meds: No Currently Unemployed: No Education: High School Diploma/GED Difficulty w/ Childcare or Family Care: No Gender identity (if verbalized by the patient): Female Spiritual care concerns: No Exam Narrative: GENERAL: Well-appearing, In no acute distress, pleasant cooperative HEAD: Normocephalic, ecchymosis right forehead; right-sided facial hemangioma EYES: PERRLA and EOMI. ENT: Nares clear, no rhinorrhea or epistaxis. Mucous membranes moist. NECK: Supple. CHEST: Clear to auscultation. No respiratory distress. HEART: Regular rate and rhythm. No murmur heard. Normal peripheral pulses. ABDOMEN: Soft, nontender, nondistended EXTREMITIES: Normal range of motion. No edema. SKI
[2023-07-09 14:30] LABS: INR 1.9; Prothrombin Time 23.2 Seconds (11.1-14.7); Troponin I < 0.012 ng/mL (0.000-0.034)
[2023-07-09 14:31] LABS: Partial Thromboplastin Time 37.9 SECONDS (22.3-36.8)
[2023-07-09 14:34] LABS: Magnesium 2.2 mg/dL (1.6-2.3)
[2023-07-09 16:34] LABS: Influenza A QL RT-PCR Negative (Negative); Influenza B QL RT-PCR Negative (Negative); RSV RNA, RT-PCR Negative (Negative); SARS-CoV-2 RNA PCR Negative (Negative)
--- NOTE | 2023-07-09 17:56 | ADMGEN ---
This patient, Dorene Tapia, was admitted to IMU Room 201-01. Patient/family oriented to hospital policies and general routines including ID bracelet, bed and alarms, visiting hours, pain management, procedures, bathroom and other care routines, personal items, smoking policy, room service/diet, and visiting hours. Information on how to activate the Rapid Response Team has been discussed. Patient/Family are encouraged to report perceived risks to care and to ask questions if they do not understand what they are told or what they should do.
[2023-07-09 18:16] LABS: Troponin I < 0.012 ng/mL (0.000-0.034)
--- NOTE | 2023-07-09 21:00 | PM.IMHP ---
H&P: HPI History of Present Illness Date/Time: 07/09/23 21:00 Chief Complaint: Syncopal Episode Narrative: 83 y/o F presents here with syncopal episode with PMH of DVT BLE and PE in both lobes in 2015, melanoma, HTN, hemangioma (combined, facial/lip), and HLD. Patient presented here via EMS after she experienced a syncopal episode. Patient was at the [facility] getting ready to play bingo when she was looking at her cards and seated, when she had no prodrome before passing out. No preceding palpitations, diaphoresis, shortness of breath, chest pains, clamminess, or nausea. LOC for unknown duration. Fell onto floor, +head strike on to left forehead, and +LOC. No confusion when patient woke back up. Did eat breakfast today. No recent or current lower extremity swelling. No new dyspnea with exertion. Patient is on chronic anticoagulation. No previous syncopal episodes. Has had a few mechanical falls in the last year. No recent illnesses. No recent nausea vomiting or diarrhea. Last anticoagulant dose was yesterday evening, no recent missed doses. No alcohol or recreational drug use. Initial VS at presentation: 97.6, HR 102, RR 15, 149/94, 96% on room air. ED workup showed no leukocytosis, no anemia, PT 23.2, PTT 37.9, creatinine 0.7, BUN 18, GFR greater than 60, glucose 156, troponin negative x2, and viral. Head CT showed moderate nonspecific cerebral white matter disease. CXR showed no acute cardiopulmonary abnormality. Right tib-fib X are showed no acute osseous abnormality. EKG showed atrial fibrillation. Review of Systems Review of Systems: All systems reviewed & are unremarkable except as noted in HPI and below [facility] Past Medical History Medical History (Updated 07/09/23 @ 22:42 by Scarlett Peck APRN) Basal cell carcinoma (BCC) of lower back Chronic anticoagulation Closed compression fracture of L1 vertebra DVT (deep venous thrombosis) Hemangioma of face History of melanoma HTN (hypertension) Obesity Pulmonary embolism Surgical History Surgical History History of appendectomy History of cataract extraction History of hernia repair Total knee replacement status Family History Family History Sibling Family history of diabetes mellitus in first degree relative Mother Family history of diabetes mellitus in first degree relative, Onset Age: 66 Patient's mother is Other Cerebrovascular accident Social History Social History Smoking status: Never smoker Second hand tobacco smoke exposure: No Smoking end date: 06/03/71 Alcohol intake: never Substance use: never Substance use type: does not use Do You Feel Safe in your Home?: Yes Lack of Transportation: No Lack of Food: Never True Current Housing: I Have Housing Concerned About Future Housing: No Difficulty Paying Gas/Electric Bills: No Difficulty Paying for Meds: No Currently Unemployed: No Education: High School Diploma/GED Difficulty w/ Childcare or Family Care: No Gender identity (if verbalized by the patient): Female Spiritual care concerns: No Meds Home Medications and Allergies Home Medications Medication Instructions Recorded Confirmed Type metoprolol tartrate 50 mg tablet 25 mg PO Q12H 06/06/20 07/09/23 History amlodipine 10 mg tablet 10 mg PO DAILY 10/08/20 07/09/23 History lisinopril 5 mg tablet 5 mg PO DAILY 12/29/20 07/09/23 History warfarin 3 mg tablet 5 mg PO HS 12/29/20 07/09/23 History lovastatin 20 mg tablet 20 mg PO QHS 07/09/23 07/09/23 History Allergies Allergy/AdvReac Type Severity Reaction Status Date / Time adhesive Allergy Severe LOST SKIN Verified 08/07/21 13:52 LAST TIME,BLISTERS tetracycline Allergy Severe RASH Verified 08/07/21 13:52 sulfanilamide Allergy Unknown Unknow
[2023-07-09] MEDS: METOPROLOL TARTRATE 25 MG TABLET PO (21:48)
[2023-07-09] MEDS: LOVASTATIN 20 MG TABLET PO (21:48)
[2023-07-09] MEDS: WARFARIN (*PBKC) 5 MG TABLET PO (21:48)
[2023-07-10] VITALS (11 sets, daily range): BP systolic 136–148; BP diastolic 66–76; PULSE 53–73; RESP 16–18; TEMP 36.3–36.4; O2SAT 95–98
--- NOTE | 2023-07-10 | ECHO_ITS ---
Patient Info Name: Dorene Tapia Age: 83 years : 1940 Gender: Female Ht: 67 in Wt: 194 lbs BSA: 2.07 m2 HR: 68 bpm BP: 138 / 70 mmHg Technical Quality: Fair Exam Date: 07/10/2023 8:21 AM Exam Location: Echo Lab Patient Status: Inpatient Admit Date: 07/09/2023 Staff Ordering Physician: Scarlett Peck APRN Attending Provider: Mingo Sanchez MD Referring Physician: Liv WAGNER; Exam Type: CA echo dop color flow w con Study Info Indications I48.0 - Paroxysmal atrial fibrillation Complete two-dimensional, color flow and Doppler transthoracic echocardiogram is performed with contrast to opacify the left ventricle and to improve the deliniation of the left ventricle endocardial borders. Contrast/Agitated Saline Contrast/Ag. Saline: Definity Amount: 1.00 ml Existing IV Access: Yes IV Access Condition: patent with no signs of infiltration Summary 1. Definity contrast administered improved wall motion interpretation. 2. Left ventricular chamber dimension is normal. 3. Left ventricular systolic function is normal, estimated at 60-65%. 4. There is mild concentric increased left ventricular wall thickness. 5. The left ventricular diastolic function is grade I diastolic dysfunction. 6. E/e' 16 is elevated. 7. Left atrial chamber dimension is moderately enlarged. 8. There is mild aortic valve sclerosis. 9. There is trace aortic valve regurgitation. 10. The mitral valve has moderately calcified annulus. Left Ventricle E/e' 16 is elevated. Definity contrast administered improved wall motion interpretation. Left ventricular chamber dimension is normal. Left ventricular systolic function is normal, estimated at 60-65%. There is mild concentric increased left ventricular wall thickness. The left ventricular diastolic function is grade I diastolic dysfunction. Right Ventricle Right ventricular systolic function is normal and with normal TAPSE 2.3 cm. Right ventricular chamber dimension is normal. Left Atria Left atrial chamber dimension is moderately enlarged. Right Atria Right atrial chamber dimension is normal. Aortic Valve The aortic valve is trileaflet. There is mild aortic valve sclerosis. There is no aortic valve stenosis. There is trace aortic valve regurgitation. Pulmonic Valve There is no pulmonic regurgitation. Mitral Valve The mitral valve has moderately calcified annulus. There is no mitral valve stenosis. There is no mitral valve regurgitation. Tricuspid Valve There is no tricuspid valve regurgitation. Pericardium/Pleural There is no pericardial effusion. Inferior Vena Cava Normal inferior vena cava with >50% collapse upon inspiration consistent with normal right atrial pressure, 5 mmHg. Aorta The aortic root size at the sinus of Valsalva is normal. Left Ventricular Outflow Tract Name Value Normal LVOT 2D LVOT Diameter 1.97 cm LVOT Doppler LVOT Peak Gradient 6 mmHg LVOT Mean Gradient 3 mmHg LVOT VTI 30.70 cm LVOT VTI/AV VTI Ratio 0.70 LVOT Stroke Volume 93.37 ml LVOT
[2023-07-10 05:32] LABS: Hematocrit 37.7 % (37.0-47.0); Hemoglobin 12.2 g/dL (12.0-15.0); Mean Corpuscular HGB Conc 32.4 g/dl (32-36); Mean Corpuscular Volume 89.5 fl (80-100); Mean Platelet Volume 10.5 fl (7.4-10.4); Platelet Count Result 187 k/mm3 (150-375); Red Blood Count 4.21 M/mm3 (4.2-5.4); Red Cell Distribution Width 12.6 % (11.5-14.5); White Blood Count 5.3 K/mm3 (4.5-10.0)
[2023-07-10 05:36] LABS: Anion Gap 4 mmol/L (8-16); Blood Urea Nitrogen 15 mg/dL (7-17); Calcium 9.1 mg/dL (8.4-10.2); Carbon Dioxide 25 mmol/L (22-30); Chloride 110 mmol/L (98-107); Estimated CRCL calculation 62 ml/min; Estimated Glomerular Filt Rate > 60; Glucose 94 mg/dL (65-110); Potassium 3.1 mmol/L (3.4-5.0); Sodium 139 mmol/L (137-145)
--- NOTE | 2023-07-10 08:56 | PM.CNCAR ---
Assessment and Plan Assessment and plan (1) Syncope: Qualifiers: Syncope type: unspecified Qualified Code(s): R55 - Syncope and collapse Code(s): R55 - Syncope and collapse Status: Acute Assessment and Plan: Patient presents with probable syncopal episode of uncertain etiology. Brief to no prodrome is of concern, as is the occurrence while sitting. So far no evidence of sinus node dysfunction or significant bradycardia. Seizures very unlikely. May not relate to her new atrial fibrillation, as her heart rate was fairly well controlled on admission. She does take metoprolol and heart rates are sometimes in the mid to upper 50s so we should follow for any evidence of sinus node dysfunction or significant bradycardia. --outpatient 30 day monitor --echo pending --check orthostatics --probable discharge later today --Advised she should not drive for a while since we are evaluating her syncope (2) Atrial fibrillation: Qualifiers: Atrial fibrillation type: unspecified Qualified Code(s): I48.91 - Unspecified atrial fibrillation Code(s): I48.91 - Unspecified atrial fibrillation Status: Acute Assessment and Plan: New onset of atrial fibrillation, heart rate 102 in the emergency room, 79 by EKG. Has converted to sinus rhythm. Already on anticoagulation with warfarin. TSH normal. Atrial fib is often recurrent. --continue anticoagulation with warfarin or consider DOAC --30 day monitor (3) HTN (hypertension): Qualifiers: Hypertension type: primary hypertension Qualified Code(s): I10 - Essential (primary) hypertension Code(s): I10 - Essential (primary) hypertension Status: Acute Assessment and Plan: Recently controlled. 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 INR was 1.9 on admission, followed closely by Dr. Starks usually in the therapeutic range. --continue anticoagulation follow-up with Dr. Lewis History of Present Illness History of Present Illness Consult date/time: 07/10/23 08:57 Reason For Visit: New Onset A Fib With Syncope Narrative: Dorene Tapia is an 83-year-old female whom we were asked to see at the request of Scarlett Peck APRN for our advice and opinion regarding her new onset atrial fibrillation and syncopal episode, in consultation. Patient was in her normal state of health at her [place] apartment, eating and drinking normally and feeling well. While sitting down to play bingo she suddenly found herself on the floor. She appears to have had a syncopal episode. She felt fine immediately. No incontinence. she denied any dizziness or prodrome to me but per ER reports she was briefly dizzy. EMS arrived and brought her to the emergency room; their records are not available for my review. On arrival in the emergency room she was in atrial fibrillation with a heart rate of 102. She subsequently has converted to sinus rhythm. She has never had any palpitations, chest discomfort or shortness of breath. No history of heart disease. Chronically anticoagulated with warfarin followed by Dr. Lewis for history of DVT/PE several years ago. She has had some lightheaded spells while standing but no lightheadedness or dizziness while sitting and never had a syncopal episode. She exercises at the [employer] 4 times a week on the [email or web address]. Blood pressures been controlled. She has had infrequent falls due to balance problems. No history of thyroid disease. Telemetry: NSR 50s to 70s, no pauses. Labs: TSH normal, troponin negative x2 07/09/2023 EKG at 1:25 p.m.: AFib rate 79, poor R-wave progression cannot rule out old IMI, left anterior hemiblock, personally reviewed. 07/09/2023 chest x-ray: No acute cardiopulmonar
[2023-07-10] MEDS: amLODIPine BESYLATE 5 MG TABLET 10 MG PO (08:57)
[2023-07-10] MEDS: METOPROLOL TARTRATE 25 MG TABLET PO (08:58)
[2023-07-10] MEDS: lisinopriL 5 MG TABLET PO (08:58)
[2023-07-10] MEDS: PERFLUTREN LIPID MICROSPHERES 1.5 ML VIAL DILUTED TO 10 ML TOTAL VOLUME IV PUSH (10:12)
[2023-07-10 10:48] LABS: Hemoglobin A1C 5.6 % (<5.7)
--- NOTE | 2023-07-10 14:00 | PM.DS ---
DS: Admitting Diagnosis Discharge Date 07/10/23 Admitting Diagnosis syncope Afib RVR, now in NSR DS: Discharge Diagnosis Discharge Diagnosis (1) Syncope: Qualifiers: Syncope type: unspecified Qualified Code(s): R55 - Syncope and collapse Code(s): R55 - Syncope and collapse Status: Acute (2) Atrial fibrillation: Qualifiers: Atrial fibrillation type: unspecified Qualified Code(s): I48.91 - Unspecified atrial fibrillation Code(s): I48.91 - Unspecified atrial fibrillation Status: Acute DS: Summary Hospital Course Hospital Course: 83 y/o F presents here with syncopal episode with PMH of DVT BLE and PE in both lobes in 2015, melanoma, HTN, hemangioma (combined, facial/lip), and HLD. Patient presented here via EMS after she experienced a syncopal episode.? Patient was at the [employer] center getting ready to play bingo when she was looking at her cards and seated, when she had no prodrome before passing out. No preceding palpitations, diaphoresis, shortness of breath, chest pains, clamminess, or nausea.? LOC for unknown duration.? Fell onto floor, +head strike on to left forehead, and +LOC. No confusion when patient woke back up. Did eat breakfast today. No recent or current lower extremity swelling.? No new dyspnea with exertion. Patient is on chronic anticoagulation. No previous syncopal episodes. Has had a few mechanical falls in the last year. No recent illnesses.? No recent nausea vomiting or diarrhea. Last anticoagulant dose was yesterday evening, no recent missed doses. No alcohol or recreational drug use. Initial VS at presentation:? 97.6, HR 102, RR 15, 149/94, 96% on room air. ED workup showed no leukocytosis, no anemia, PT 23.2, PTT 37.9, creatinine 0.7, BUN 18, GFR greater than 60, glucose 156, troponin negative x2, and viral.? Head CT showed moderate nonspecific cerebral white matter disease.? CXR showed no acute cardiopulmonary abnormality.? Right tib-fib X are showed no acute osseous abnormality.? EKG showed atrial fibrillation. patient coverted spontaneously to [facility], ECHO showed EF 60-65%, cardiology prescribed heart monitor and will continue outpatient follow up patient already on Warfarin adn will continue. and patinet already on Metoprolol. F/u with PCP in 3-5 days, f/u with cardiology as instructed Time Spent with Patient Time attestation: Total time spent providing and/or coordinating discharge services: DS: Data Data Completed and Pending Labs on day of discharge: Labs from last 24 hours 07/10/23 07/09/23 07/09/23 04:22 17:25 15:53 WBC 5.3 RBC 4.21 Hgb 12.2 Hct 37.7 MCV 89.5 MCH 29.0 MCHC 32.4 RDW 12.6 Plt Count 187 MPV 10.5 H PT INR APTT Sodium 139 Potassium 3.1 L Chloride 110 H Carbon Dioxide 25 Anion Gap 4 L BUN 15 Creatinine 0.70 Estim Creat Clear Calc 62 Estimated GFR > 60 Glucose 94 Hemoglobin A1c 5.6 Calcium 9.1 Magnesium Troponin I < 0.012 TSH (Reflex) 3.160 Influenza A (RT-PCR) Negative Influenza B (RT-PCR) Negative RSV (RT-PCR) Negative SARS-CoV-2 RNA (RT-PCR) Negative 07/09/23 13:30 WBC RBC Hgb Hct MCV MCH MCHC RDW Plt Count MPV PT 23.2 H INR 1.9 APTT 37.9 H Sodium Potassium Chloride Carbon Dioxide Anion Gap BUN Creatinine Estim Creat Clear Calc Estimated GFR Glucose Hemoglobin A1c Calcium Magnesium 2.2 Troponin I < 0.012 TSH (Reflex) Influenza A (RT-PCR) Influenza B (RT-PCR) RSV (RT-PCR) SARS-CoV-2 RNA (RT-PCR) Discharge Plan Discharge Attending physician on discharge: Azeem Armenta Consulting providers: Ivy Castro Discharging Clinician: Azeem Armenta Anticipated Discharge Date/Time: 07/10/23 13:56 Patient Disposition: Home, Self-Care Activity: as tolerated Diet: as tolerated Patient Instructions: Antibiotic Form Stand Hood
--- NOTE | 2023-07-12 12:01 | IVDEFINITY ---
Prior to administration of IV Definity the patient was educated on the risks and benefits of the imaging enhancing agent including potential adverse side effects. The patient verbalized understanding. Allergies were verified. No exclusion criteria were identified and at least one of the following inclusion criteria were met: 1) physician request, 2) patient technically difficult to image (per the [place] Society of Echocardiography guidelines of two or more segments not discernable within the apical view), or 3) questionable left ventricular function. ?
== END 2023-07-10 15:10 | disposition home or self-care (01) ==
LOC: ANHED 15:59 → ANHIMU 17:27
PROVIDERS: Student in an Organized Health Care Education/Training Program; Admitting Provider Internal Medicine; Emergency Provider Emergency Medicine; PCP Family Medicine; Visit Provider Internal Medicine
DX: R55 Syncope and collapse (principal); I48.91 Unspecified atrial fibrillation; R90.82 White matter disease, unspecified; D18.01 Hemangioma of skin and subcutaneous tissue; I11.9 Hypertensive heart disease without heart failure; I08.0 Rheumatic disorders of both mitral and aortic valves; E66.9 Obesity, unspecified; Z68.30 Body mass index [BMI] 30.0-30.9, adult; E78.5 Hyperlipidemia, unspecified; Z86.718 Personal history of other venous thrombosis and embolism; Z79.01 Long term (current) use of anticoagulants; Z79.899 Other long term (current) drug therapy; Z86.711 Personal history of pulmonary embolism
CPT/HCPCS: 36415; 70450; 71045; 73590; 80048; 80053; 82948; 83036; 83735; 84443; 84484; 85025; 85027; 85610; 85730; 87637; 93005; 96374; 99285; A9270; C8929; G0378; Q9957

== ENCOUNTER 2023-11-28 09:10 | Outpatient (CLI) | payer MEDICARE, MEDICAID, SELFPAY ==
[2023-11-28 10:44] LABS: INR 1.6
== END 2023-11-28 09:11 | disposition home or self-care (01) ==
PROVIDERS: PCP Family Medicine; Visit Provider Registered Nurse
DX: R79.1 Abnormal coagulation profile (principal); Z86.711 Personal history of pulmonary embolism
CPT/HCPCS: 36415; 85610

== ENCOUNTER 2023-12-04 09:01 | Outpatient (CLI) | payer MEDICARE, SELFPAY ==
[2023-12-04 09:41] LABS: INR 1.9; Prothrombin Time 22.2 Seconds (11.1-14.7)
[2023-12-04 09:42] LABS: Partial Thromboplastin Time 36.1 Seconds (22.3-36.8)
== END 2023-12-04 09:02 | disposition home or self-care (01) ==
PROVIDERS: PCP Family Medicine; Visit Provider Registered Nurse
DX: R79.1 Abnormal coagulation profile (principal)
CPT/HCPCS: 36415; 85610; 85730

== ENCOUNTER 2023-12-10 11:21 | Emergency (ER) | payer MEDICARE, SELFPAY ==
[2023-12-10] VITALS (23 sets, daily range): BP systolic 139–168; BP diastolic 66–104; PULSE 60–73; RESP 0–19; TEMP 36.6; O2SAT 93–98
--- NOTE | ~2023-12-10 | CT_ITS ---
EXAMINATION: CT cervical spine wo con DATE: 12/10/2023 11:57 INDICATION: Fall with head injury TECHNIQUE: Computed tomography (CT) of the cervical spine was performed without intravenous contrast. Automated exposure control and iterative reconstruction technique were employed. The dose-length pro duct was 330.06 mGy-cm. COMPARISON: None FINDINGS: Severe spondylosis at the atlantoaxial articulation. Alignment is normal. Vertebral body heights are normal. No fracture. Moderate disc height loss at C6-C7 and C7-T1. Mild disc height loss at C2-C3 and C5-C6. There is mild multilevel cervical central canal stenosis resulting from combination of disc b ulges and small endplate osteophytes. Bilateral moderate to severe multilevel cervical facet and unco vertebral osteoarthritis. This contributes to neural foraminal stenosis, moderate to severe on the ri ght at C3-C4 and on the left at C4-C5 with mild to moderate neural from stenosis at the remaining cer vical neural foramina. Atherosclerotic calcific lesion at the bilateral carotid bulbs. Asymmetric enl argement and reticular pattern of increased density in the right carotid gland relative to the left w hich suggests parotiditis. Similarly there is asymmetric enlargement and stranding in the fat surroun ding the right submandibular gland relative to the left also suggestive of sialoadenitis. There is a 9 mm macroscopic fat attenuation nodule, possibly a lipoma at the posterior margin of the left thyroi d lobe. Cervical soft tissues are otherwise unremarkable. Mild biapical pleural-parenchymal scarring. Cardiac pacemaker leads extending into the right brachiocephalic vein. IMPRESSION: 1. Moderate to severe cervical spondylosis with no acute osseous abnormality. 2. Asymmetric enlargement and inflammatory changes at the right parotid and submandibular glands cons istent with parotiditis and sialoadenitis. Reviewed, dictated and finalized at location A. IMPRESSION: 1. Moderate to severe cervical spondylosis with no acute osseous abnormality. 2. Asymmetric enlargement and inflammatory changes at the right parotid and sub mandibular glands consistent with parotiditis and sialoadenitis.
--- NOTE | ~2023-12-10 | CT_ITS ---
CT brain wo con Ordering provider: Alonzo Lynn MD History: 83 years Female with . fall . Comparison: July 09, 2023 Technique: CT of the head without contrast. Radiation reduction technique utilized. DLP is 681 mGy. FINDINGS: BRAIN PARENCHYMA AND CSF SPACES: Mild leukoaraiosis and diffuse cortical atrophy. Mild atheromatous d isease. No midline shift, mass effect or hemorrhage. The brain parenchyma and CSF spaces are otherwi se normal. VISUALIZED PARANASAL SINUSES: Well aerated. MASTOIDS: Well aerated. BONES: The bones appear intact. SOFT TISSUES: Visualized nasopharynx is normal. Superficial soft tissues are normal. IMPRESSION: No acute intracranial findings. Reviewed, dictated and finalized at location A.
--- NOTE | 2023-12-10 12:41 | PC.NURSE ---
c-collar removed per provider. continues to deny any neck pain
--- NOTE | 2023-12-10 12:45 | ED.FALL ---
HPI - Fall General Chief Complaint: Fall Stated Complaint: fall - Time Seen by Provider: 12/10/23 12:22 History of Present Illness HPI Narrative: Patient is an 83-year-old female with a history of PE on warfarin presenting after a fall. Patient states that she worked out at the [employer] and got on the bus to go home when she fell straight forward onto her face. She is unsure why she fell, states she may have slipped. Denies losing consciousness. States that she remembers the entire event. No chest pain or shortness of breath. No numbness or weakness. No seizure activity, urinary incontinence, tongue biting. Denies neck or back pain. Sustained laceration to her forehead. No further complaints. Related Data Home Medications Medication Instructions Recorded Confirmed metoprolol tartrate 50 mg tablet 25 mg PO Q12H 06/06/20 07/09/23 amlodipine 10 mg tablet 10 mg PO DAILY 10/08/20 07/09/23 lisinopril 5 mg tablet 5 mg PO DAILY 12/29/20 07/09/23 warfarin 3 mg tablet 5 mg PO HS 12/29/20 07/09/23 lovastatin 20 mg tablet 20 mg PO QHS 07/09/23 07/09/23 Allergies Allergy/AdvReac Type Severity Reaction Status Date / Time adhesive Allergy Severe LOST SKIN Verified 12/10/23 11:27 LAST TIME,BLISTERS tetracycline Allergy Severe RASH Verified 12/10/23 11:27 sulfanilamide Allergy Unknown Unknown Verified 12/10/23 11:27 adhesive tape Allergy Rash Verified 12/10/23 11:27 Penicillins Allergy Hives Verified 12/10/23 11:27 Sulfa (Sulfonamide Allergy Hives Verified 12/10/23 11:27 Antibiotics) Review of Systems Review of Systems: All systems reviewed & are unremarkable except as noted in HPI and below PMFSH Past Medical History Medical History Basal cell carcinoma (BCC) of lower back Chronic anticoagulation Closed compression fracture of L1 vertebra DVT (deep venous thrombosis) Hemangioma of face History of melanoma HTN (hypertension) Obesity Pulmonary embolism Surgical History Surgical History History of appendectomy History of cataract extraction History of hernia repair Total knee replacement status Family History Family History Sibling Family history of diabetes mellitus in first degree relative Mother Family history of diabetes mellitus in first degree relative, Onset Age: 66 Patient's mother is Other Cerebrovascular accident Social History Social History Social History: Lives in a longterm apartment, drives. 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 Closest relative is her friend and ex tzvqii-of-sql Samantha Burkett. Smoking status: Never smoker Second hand tobacco smoke exposure: No Smoking end date: 06/03/71 Alcohol intake: never Substance use: never Substance use type: does not use Do You Feel Safe in your Home?: Yes Lack of Transportation: No Lack of Food: Never True Current Housing: I Have Housing Concerned About Future Housing: No Difficulty Paying Gas/Electric Bills: No Difficulty Paying for Meds: No Currently Unemployed: No Education: High School Diploma/GED Difficulty w/ Childcare or Family Care: No Gender identity (if verbalized by the patient): Female Spiritual care concerns: No Exam Narrative: GENERAL: Well-appearing, In no acute distress, pleasant and cooperative HEAD: Normocephalic, 1 cm linear laceration between eyebrows EYES: PERRLA and EOMI. ENT: Mucous membranes moist. +large R sided facial albin NECK: Supple. no midline tenderness CHEST: No respiratory distress. HEART: Regular rate and rhythm. ABDOMEN: Soft, nontender, nondistended EXTREMITIES: Normal range of motion. SKIN: Warm, dry, no rash. NEURO: No fo
[2023-12-10] MEDS: TETANUS,DIPHTHERIA,AC PERTUSSIS ADULT (0.5 ML) BOOSTRIX IM (13:49)
== END 2023-12-10 14:08 | disposition home or self-care (01) ==
PROVIDERS: Emergency Provider Emergency Medicine; PCP Family Medicine
DX: S01.81XA Laceration without foreign body of other part of head, initial encounter (principal); Z23 Encounter for immunization; I10 Essential (primary) hypertension; E66.9 Obesity, unspecified; Z68.31 Body mass index [BMI] 31.0-31.9, adult; Z96.659 Presence of unspecified artificial knee joint; Z86.711 Personal history of pulmonary embolism; Z86.718 Personal history of other venous thrombosis and embolism; Z85.820 Personal history of malignant melanoma of skin; Z87.891 Personal history of nicotine dependence; Z98.49 Cataract extraction status, unspecified eye; Z79.01 Long term (current) use of anticoagulants; Z79.899 Other long term (current) drug therapy; M47.812 Spondylosis without myelopathy or radiculopathy, cervical region; W10.9XXA Fall (on) (from) unspecified stairs and steps, initial encounter
CPT/HCPCS: 12011; 70450; 72125; 90471; 90715; 99284

== ENCOUNTER 2023-12-16 09:01 | Outpatient (CLI) | payer MEDICARE, SELFPAY ==
[2023-12-16 09:56] LABS: INR 3.8; Prothrombin Time 38.1 Seconds (11.1-14.7)
[2023-12-16 09:57] LABS: Partial Thromboplastin Time 45.9 Seconds (22.3-36.8)
== END 2023-12-16 09:02 | disposition home or self-care (01) ==
LOC: ANHLAB 09:02
PROVIDERS: PCP Family Medicine; Visit Provider Registered Nurse
DX: Z86.711 Personal history of pulmonary embolism (principal)
CPT/HCPCS: 36415; 85610; 85730

== ENCOUNTER 2024-01-29 10:24 | Outpatient (CLI) | payer MEDICARE, SELFPAY ==
[2024-01-29 10:52] LABS: Basophils Absolute Auto 0.1 K/mm3 (0.0-0.1); Basophils Percent Auto 0.9 % (0.2-1.2); Eosinophils Absolute Auto 0.1 K/mm3 (0-0.3); Eosinophils Percent Auto 2.4 % (0-4.4); Hematocrit 42.2 % (37.0-47.0); Immature Granulocyte Absolute 0.02 K/mm3 (0.00-0.031); Immature Granulocyte Percent A 0.3 % (0-0.5); Lymphocytes Absolute Auto 1.11 K/mm3 (0.9-3.2); Lymphocytes Percent Auto 18.9 % (18.3-44.2); Mean Corpuscular HGB Conc 33.2 g/dl (32-36); Mean Corpuscular Hemoglobin 29.9 pg (26-34); Mean Corpuscular Volume 90.2 fl (80-100); Mean Platelet Volume 9.5 fl (7.4-10.4); Monocytes Absolute Auto 0.5 K/mm3 (0.1-0.6); Monocytes Percent Auto 9.2 % (2.6-8.5); Neutrophils Percent Auto 68.3 % (45.5-73.1); Platelet Count Result 200 k/mm3 (150-375); Red Blood Count 4.68 M/mm3 (4.2-5.4); Red Cell Distribution Width 12.4 % (11.5-14.5); White Blood Count 5.9 K/mm3 (4.5-10.0)
[2024-01-29 11:13] LABS: INR 1.9; Prothrombin Time 22.1 Seconds (11.1-14.7)
[2024-01-29 11:14] LABS: Partial Thromboplastin Time 38.3 Seconds (22.3-36.8)
[2024-01-29 11:14] LABS: Alanine Aminotransferase 11 U/L (6-35); Albumin Level 4.7 g/dL (3.5-5.1); Alkaline Phosphatase 78 U/L (38-126); Anion Gap 11 mmol/L (4-12); Aspartate Amino Transferase 22 U/L (14-36); Blood Urea Nitrogen 20 mg/dL (7-17); Calcium 9.4 mg/dL (8.4-10.2); Carbon Dioxide 25 mmol/L (22-30); Chloride 105 mmol/L (98-107); Cholesterol 210 mg/dL (0-200); Estimated Glomerular Filt Rate > 60; Glucose 103 mg/dL (65-110); HDL Direct 59 mg/dL; Potassium 3.9 mmol/L (3.4-5.0); Sodium 141 mmol/L (137-145); Triglycerides 106 mg/dL (<150)
[2024-01-29 11:24] LABS: Free T4 Free Thyroxine 1.35 ng/mL (0.78-2.19)
[2024-01-29 11:25] LABS: LDL Cholesterol Direct 106 mg/dL
[2024-01-29 11:39] LABS: Total Triiodothyronine (T3) 1.25 NG/ML (0.97-1.69)
== END 2024-01-29 10:25 | disposition home or self-care (01) ==
LOC: ANHLAB 10:31
PROVIDERS: PCP Family Medicine; Visit Provider Family Medicine
DX: R53.83 Other fatigue (principal); I10 Essential (primary) hypertension; I48.91 Unspecified atrial fibrillation; E78.5 Hyperlipidemia, unspecified; Z86.718 Personal history of other venous thrombosis and embolism
CPT/HCPCS: 36415; 80053; 80061; 84439; 84443; 84480; 85025; 85610; 85730

== ENCOUNTER 2024-04-27 09:19 | Outpatient (CLI) | payer MEDICARE, SELFPAY ==
[2024-04-27 10:22] LABS: INR 1.6; Prothrombin Time 19.6 Seconds (11.1-14.7)
== END 2024-04-27 09:20 | disposition home or self-care (01) ==
LOC: ANHLAB 09:21
PROVIDERS: PCP Family Medicine; Visit Provider Registered Nurse
DX: I48.91 Unspecified atrial fibrillation (principal)
CPT/HCPCS: 36415; 85610

== ENCOUNTER 2024-06-01 09:20 | Outpatient (CLI) | payer MEDICARE, SELFPAY ==
[2024-06-01 10:03] LABS: Basophils Absolute Auto 0.1 K/mm3 (0.0-0.1); Eosinophils Absolute Auto 0.1 K/mm3 (0-0.3); Eosinophils Percent Auto 1.9 % (0-4.4); Hematocrit 41.8 % (37.0-47.0); Immature Granulocyte Absolute 0.02 K/mm3 (0.00-0.031); Immature Granulocyte Percent A 0.3 % (0-0.5); Lymphocytes Absolute Auto 1.32 K/mm3 (0.9-3.2); Lymphocytes Percent Auto 22.9 % (18.3-44.2); Mean Corpuscular HGB Conc 33.5 g/dl (32-36); Mean Corpuscular Hemoglobin 29.7 pg (26-34); Mean Corpuscular Volume 88.6 fl (80-100); Mean Platelet Volume 9.6 fl (7.4-10.4); Monocytes Absolute Auto 0.6 K/mm3 (0.1-0.6); Monocytes Percent Auto 9.9 % (2.6-8.5); Neutrophils Absolute Auto 3.7 K/mm3 (1.3-6.7); Platelet Count Result 238 k/mm3 (150-375); Red Blood Count 4.72 M/mm3 (4.2-5.4); White Blood Count 5.8 K/mm3 (4.5-10.0)
[2024-06-01 10:08] LABS: INR 2.7; Partial Thromboplastin Time 40.5 Seconds (22.3-36.8)
[2024-06-01 10:11] LABS: Alanine Aminotransferase 11 U/L (6-35); Albumin Level 4.5 g/dL (3.5-5.1); Alkaline Phosphatase 70 U/L (38-126); Anion Gap 4 mmol/L (4-12); Aspartate Amino Transferase 20 U/L (14-36); Bilirubin,Total 0.9 mg/dL (0.2-1.3); Blood Urea Nitrogen 19 mg/dL (7-17); Calcium 9.4 mg/dL (8.4-10.2); Carbon Dioxide 29 mmol/L (22-30); Chloride 110 mmol/L (98-107); Cholesterol 234 mg/dL (0-200); Estimated Glomerular Filt Rate > 60; Glucose 114 mg/dL (65-110); HDL Direct 57 mg/dL; Potassium 3.3 mmol/L (3.4-5.0); Sodium 143 mmol/L (137-145); Triglycerides 167 mg/dL (<150)
[2024-06-01 10:23] LABS: LDL Cholesterol Direct 122 mg/dL
[2024-06-01 10:31] LABS: Free T4 Free Thyroxine 1.52 ng/dL (0.78-2.19)
[2024-06-01 10:43] LABS: Total Triiodothyronine (T3) 1.24 NG/ML (0.97-1.69)
== END 2024-06-01 09:21 | disposition home or self-care (01) ==
LOC: ANHLAB 09:25
PROVIDERS: PCP Family Medicine; Visit Provider Family Medicine
DX: E78.5 Hyperlipidemia, unspecified (principal); I10 Essential (primary) hypertension; R53.83 Other fatigue; I48.91 Unspecified atrial fibrillation
CPT/HCPCS: 36415; 80053; 80061; 84439; 84443; 84480; 85025; 85610; 85730

== ENCOUNTER 2024-09-23 07:32 | Outpatient (CLI) | payer MEDICARE, MEDICAID, SELFPAY ==
--- OUTSIDE RECORDS SUMMARY | 2024-09-23 07:38 | XMS_ITS ---
Author Name Cole Lewis Address [address] [place] [address] Phone [phone] Organization [facility] Address [address] [place] [address] Phone [phone] Care Team Providers Care Director Clinical Data Name Role Phone Cole Lewis Unavailable [phone] Functional Status No Results Mental Status No Results Allergies and Intolerances Name Onset Date Reaction Severity Sulfa (Sulfonamide Antibiotics) (Allergy) Sat Ma r 17 14:06:00 EDT 2018 tetracycline (Allergy) Sat Mar 17 14:06:00 EDT 2 018 Penicillins (Allergy) Sat Mar 17 14:06:00 EDT 20 18 Medications Medication Directions Start Date End Date Coumadin 5 mg tablet 5mg TABLET Oral 1 T antonella Daily SatSep 13 13:00:00 EDT 2017Sep 13 01:00:00 EDT 2017 HYDROcodone 5 mg-acetaminophen 325 mg tablet 1 tab TABLET Oral 1 Time Daily for 1 Day SatSep 04 12:15:00 EDT 2017Sep 04 13:40:00 EDT 2018 Lexapro 10 mg tablet 10mg TABLET Oral 1 Time Daily qHS SatSep 04 21:00:00 EDT 2017Sep 13 01:00:00 EDT 2017 oxyCODONE 5 mg tablet 5mg TABLET Oral 3 Times Daily SatSep 04 15:00:00 EDT 2017Sep 13 01:00:00 EDT 2017 oxyCODONE-acetaminophen 5 mg-325 mg tablet 1 tab TABLET Oral PRN Every 4 Hours SatSep 04 13:00:00 EDT 2017Sep 13 01:00:00 EDT 2017 Flexeril 5 mg tablet 5mg TABLET Oral PRN Every 8 Hours SatSep 04 13:00:00 ED2017Sep 13 01:00:00 ED2017 hydrocortisone 1 % topical cream as directed CREAM (GRAM) Topical 1 Time Daily for 7 Days apply hydrocortisone 1% cream to Left antecubital fossa for 1 week SatSep 03 01:00:00 ED2017Sep 10 00:59:00 ED2017 meloxicam 7.5 mg tablet 7.5mg TABLET Ora l 1 Time Daily SatAug 30 11:00:00 ED2017Sep 13 01:00:00 ED2017 Coumadin 6 mg tablet 6mg TABLET Oral 1 T antonella Daily SatAug 30 16:00:00 ED2017Sep 13 01:00:00 ED2017 [place] 7.5 mg-325 mg tablet 1-2 tablets T ABLET Oral PRN Every 4 Hours Pain SatAug 29 11:00:00 ED2017Sep 04 13:40:00 ED2017 Lasix 20 mg tablet 20mg TABLET Oral 1 T antonella Daily for 3 Days SatAug 29 14:00:00 2017Sep 01 13:59:00 ED2017 TUBErsol 5 tub. unit/0.1 mL intradermal injection solution Read Results VIAL (ML) Other 1 Time Weekly for 2 Weeks Read results between 48-72 hours after 1st and 2nd 1 week apart. If positive do chest x-ray to rule out active disease. SatAug 22 13:00:00 ED2017Sep 05 12:59:00 ED2017 nitroglycerin 0.4 mg sublingual tablet as directed TABLET, SUBLINGUAL Sublingual PRN Give 1 tab q5mins x 3 doses PRN for c/o chest pain SatAug 22 08:00:00 ED2017Sep 13 01:00:00 ED2017 Coumadin 6 mg tablet 7mg TABLET Oral 1 T antonella Daily SatAug 21 14:00:00 ED2017Aug 28 12:33:00 ED2017 atorvastatin 10 mg tablet 10 mg TABLET O ral 1 Time Daily SatAug 21 01:00:00 ED2017Sep 13 01:00:00 ED2017 HYDROcodone 5 mg-acetaminophen 325 mg tablet 1 tab TABLET Oral Every 8 Hours SatAug 20 01:00:00 ED2017Sep 04 13:40:00 ED2017 Colace 100 mg capsule 100mg CAPSULE Oral 2 Times Daily SatAug 20:00:00 EDT 2017Sep 13 01:00:00 EDT 2017 Xarelto 10 mg tablet 10 mg TABLET Oral 1 Time Daily d/c when INR is 2 or greater SatAug 20 13:00:00 EDT 2017Aug 21 01:55:00 EDT 2017 Xarelto 10 mg tablet 10 mg TABLET Oral 1 Time Daily d/c when INR is 2 or greater SatAug 21 01:50:00 EDT 2017Aug 28 12:33:00 EDT 2017 Coumadin 6 mg tablet 6 mg TABLET Oral 1 Time Daily SatAug 20 01:00:00 EDT 2017Aug 21 14:56:00 EDT 2017 Coumadin 5 mg tablet 5mg TABLET Oral 1 T antonella Daily SatAug 17 18:00:00 EDT 2017Aug 20 00:58:00 EDT 2017 HYDROcodone 7.5 mg-acetaminophen 325 mg tablet 1 tab TABLET Oral PRN Every 3 Hours pain SatAug 17 16:00:00 EDT 2017Aug 21 01:42:00 EDT 2017 amLODIPine 5 mg tablet 5mg TABLET Oral 1 Time Daily SatAug 18 09:00:00 EDT 2017Sep 13 01:00:00 EDT 2017 metoprolol tartrate 50 mg tablet 50mg TABLET Oral 2 Times Daily SatAug 17 21:00:00 EDT 2017Sep 13 01:00:00 EDT 2017 TUBErsol 5 tub. unit/0.1 mL intradermal injection solution 0.1 ml VIAL (ML) Intradermal 1 Time Weekly for 2 Weeks (PPD) 1st injection upon admission. Read between 48 and 72 hours and give 2nd injection 1 week after the 1st if result is negative. If positive result, proceed with chest x-ray to rule out active disease. SatAug 19 13:00:00 EDT 2017Sep 02 12:59:00 EDT 2017 simvastatin 20 mg tablet 20mg TABLET Ora l 1 Time Daily SatAug 17 21:00:00 EDT 2017Aug 21 15:54:00 EDT 2017 HYDROcodone 7.5 mg-acetaminophen 325 mg tablet 1 tab TABLET Oral PRN Every 3 Hours pain SatAug 21 01:40:00 EDT 2017Aug 29 11:19:00 EDT 2017 Problems Active Concerns * Aftercare following joint replacement surgery* Code: * Start Date: SatAug 17 00:00:00 EDT 2017 * End Date: * Text: * Presence of left artificial knee joint* Code: * Start Date: SatAug 17:00:00 EDT 2017 * End Date: * Text: * Unilateral primary osteoarthritis, left knee* Code: * Start Date: SatAug 17:00:00 EDT 2017 * End Date: * Text: * Hypertensive heart and chronic kidney disease with heart failure and stage 1 through stage 4 chronic kidney disease, or unspecified chronic kidney disease * Code: * Start Date: SatAug 17:00:00 EDT 2017 * End Date: * Text: * Unspecified diastolic (congestive) heart failure* Code: * Start Date: SatAug 17:00:00 EDT 2017 * End Date: * Text: * Hyperlipidemia, unspecified* Code: * Start Date: SatAug 17:00:00 EDT 2017 * End Date: * Text: * Chronic kidney disease, stage 3 (moderate)* Code: * Start Date: SatAug 17:00:00 EDT 2017 * End Date: * Text: * Personal history of other venous thrombosis and embolism* Code: * Start Date: SatAug 17:00:00 EDT 2017 * End Date: * Text: * Personal history of pulmonary embolism* Code: * Start Date: SatAug 17 00:00:00 EDT 2017 * End Date: * Text: * Prothrombin gene mutation* Code: * Start Date: SatAug 17:00:00 EDT 2017 * End Date: * Text: * Presence of other vascular implants and grafts* Code: * Start Date: SatAug 17:00:00 EDT 2017 * End Date: * Text: * Allergic contact dermatitis due to adhesives* Code: * Start Date: SatSep 05 00:00:00 EDT 2017 * End Date: * Text: * Acute stress reaction* Code: * Start Date: SatSep 05 00:00:00 EDT 2017 * End Date: * Text: * Major depressive disorder, single episode, severe with psychotic features* Code: * Start Date: SatSep 05 00:00:00 EDT 2017 * End Date: * Text: Reason for Referral Past Medical History
--- OUTSIDE RECORDS SUMMARY | 2024-09-23 07:38 | XMS_ITS | Encounter Summary ---
Author Organization [facility] Address [address] [address] Care Team Providers Care X Ray Physician Name Role Phone Cole Lewis MD Primary Care Provider [phone] Encounter Details Date Type Department Care Team (Late st Contact Info) Description 09/22/2024 Telephone [facility] Cardiology [address] [place] [address] Ashley Potts NP [address] [place] [address] Social History Tobacco Use Types Packs/Day Years Used Date Smoking Tobacco: Never Smokeless Tobacco: Never [facility] Utilities Answer Date Recorded In the past 12 months has e electric, gas, oil, or water company threatened to shut off services in your home? No 07/24/2023 Social Connection and Isolat ion Panel [NHANES] Answer Date Recorded In a typical week, how many times do you talk on the phone with family, friends, or neighbors? More than three times a week 07/24/2023 How often do you get togethe r with friends or relatives? More than three times a week 07/24/2023 How often do you attend chur ch or sikh services? More than 4 times per year 07/24/2023 Do you belong to any clubs o r organizations such as sabianism groups, unions, fraternal or athletic groups, or school groups? Yes 07/24/2023 How often do you attend meet ings of the clubs or organizations you belong to? More than 4 times per year 07/24/2023 Are you , , di vorced, , never , or living with a partner? Never 07/24/2023 AUDIT-C Answer Date Recorded Q1: How often do you have a drink containing alcohol? Never 07/24/2023 Q2: How many drinks containi ng alcohol do you have on a typical day when you are drinking? Patient does not drink Q3: How often do you have si x or more drinks on one occasion? Never 07/24/2023 Overall Financial Resource Strain (CARDIA) Answe r Date Recorded How hard is it for you to pa y for the very basics like food, housing, medical care, and heating? Not hard at all 07/24/2023 Hunger Vital Sign Answer Date Recorded Within the past 12 months, y ou worried that your food would run out before you got the money to buy more. Never true 07/24/19 24 Within the past 12 months, t he food you bought just didn't last and you didn't have money to get more. Never true 07/24/2023 PRAPARE - Transportation Answer Date Re corded In the past 12 months, has l ack of transportation kept you from medical appointments or from getting medications? No 07/05 In the past 12 months, has l ack of transportation kept you from meetings, work, or from getting things needed for daily living? No 07/24/2023 Housing Stability Vital Sign Answer Jean-Pierre e Recorded In the last 12 months, was t here a time when you were not able to pay the mortgage or rent on time? No 07/24/2023 In the last 12 months, how many places have you lived? 1 07/24/2023 In the last 12 months, was t here a time when you did not have a steady place to sleep or slept in a usp (including now)? No 07/24/2023 Personal Safety Answer Date Recorded Have you ever been in or are you currently in a harmful physical or emotional relationship or is someone making you feel afraid or unsafe? Denies 07/24/2023 Comments Unknown Sex and Gender Information Value Date Recorded Sex Assigned at Not on file Legal Sex Female 3:39 AM [employer] Gender Identity Not on file Sexual Orientation Not on file documented as of this encounter Miscellaneous Notes * Telephone Encounter - Santino Hdez, RN - 09/22/2024 8:30 AM CDT Last monitor result faxed as requested. * Telephone Encounter - Jennyfer Maria - 09/22/2024 8:17 AM CDT Liliana hurtado/ [facility] called requesting the results of the pts heart monitor be faxed tothem so they can review them fro her appt today at 10:30. Please advise Thank you Contact: documented in this encounter Plan of Treatment Not on file documented as of this encounter Visit Diagnoses Not on filedocumented in this encounter Care Teams X Ray Physician Relationship Specialty Start Date End Date Cole Lewis MD PCP - General Family Medicine 07/15/20 documented as of this encounter
--- OUTSIDE RECORDS SUMMARY | 2024-09-23 07:38 | XMS_ITS | Referral Summary ---
Author Organization [facility] [address] [place] [address] 162 [address] [place] [address] Care Team Providers Care Mat Gauger Name Role Phone Cole Lewis MD Primary Care Provider Encounters Date Type Department Care Team Description 09/22/2024 Telephone [facility] Cardiology [address] [facility] [address] [place] [address] Ashley Potts NP 07/31/2024 Telephone [facility] Cardiology [facility] [address] [place] [address] Itzel Alejandra RN Scheduling Appointments 07/31/2024 7:00 AM CASHIER 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 ROOM Ancillary Procedure [facility] Cardiology [facility] [address] [place] [address] Tachy-xavi syndrome (HCC); Paroxysmal atrial fibrillation (HCC); Pacemaker; Syncope and collapse from Last 3 Months Allergies Active Allergy Reactions Criticality Noted Date Comments Adhesive Rash Medium 07/23/2023 Penicillins Anaphylaxis High 08/12/2020 Sulfa (Sulfonamide Antibiotics) Rash Medium 08/01 Medications warfarin (COUMADIN) 1 mg tablet Take 1 tablet (1 mg total) by mouth daily MD stopped 07/21/23 Active warfarin (COUMADIN) 4 mg tablet Take 1 tablet (4 mg total) by mouth daily MD stopped 07/21/23 1 Active lisinopriL (PRINIVIL,ZESTR IL) 5 mg tablet 1 Active triamcinolone (KENALOG) 0.1 % cream APPLY CREAM EXTERNALLY TO AFFECTED AREA TWICE DAILY FOR 7 DAYS 1 Active lovastatin (MEVACOR) 20 mg tablet Take 1 tablet (20 mg total) by mouth nightly 3 Active metoprolol (LOPRESSOR) 100 mg tablet Take 1 tablet (100 mg total) by mouth 2 (two) times a day 180 tablet 3 4 Active amLODIPine (NORVASC) 10 mg tablet 4 Active Active Problems Problem Noted Date Diagnosed Date Paroxysmal atrial fibrillation 11/01/2023 Pacemaker 11/01/2023 Hypokalemia 07/23/2023 Primary hypertension 07/23/2023 Chronic anticoagulation 07/23/2023 Personal history of DVT (deep vein thrombosis) 0 07/23/2023 Tachy-xavi syndrome 07/22/2023 Hypertensive heart and chron ic kidney disease with heart failure and stage 1 through stage 4 chronic kidney disease, or unspecified chronic kidney disease 08/17/2017 Resolved Problems Problem Noted Date Diagnosed Date Resolved Date Basal cell carcinoma (BCC) o f skin of left lower extremity including hip 08/16/2020 01/27/2021 Immunizations Immunization Administration Dates Next Due Influenza, Unspecified 04/03/2023 Social History Tobacco Use Types Packs/Day Years Used Date Smoking Tobacco: Never Smokeless Tobacco: Never [employer] Utilities Answer Date Recorded In the past 12 months has [employer], gas, oil, or water [employer] threatened to shut off services in your [...] often do you attend chur ch or alevism services? More than 4 times per year 07/24/2023 Do you belong to any clubs o r organizations such as yarsanism groups, unions, fraternal or athletic groups, or [...] place to sleep or slept in a [place] health care facility (including now)? No 07/24/2023 Personal Safety Answer Date Recorded Have you ever been in or are you currently in a harmful physical or emotional relationship or is someone making you feel afraid or unsafe? 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 ROOM Gender Identity Not on file Sexual Orientation Not on file Last Filed Vital Signs Vital Sign Reading Time Taken Comments Blood Pressure 110/80 11/01/2023 12:45 PM CDT Pulse 60 11/01/2023 12:45 PM CDT Temperature 36.3 C (97.3 F) 07/31/2023 8:16 AM CASHIER TUBE ROOM Respiratory Rate 18 07/31/2023 5:02 AM CASHIER TUBE ROOM Oxygen Saturation 94% 11/01/2023 12: 45 PM CDT Inhaled Oxygen Concentration - - Weight 86.5 kg (190 lb 11.2 oz) 024 12:45 PM CDT Height 167.6 cm (5' 6 ) 07/23/2023 2:37 AM CASHIER TUBE ROOM Body Mass Index 30.78 07/23/2023 2:37 AM CASHIER TUBE ROOM Plan of Treatment Not on file Medical Devices Implanted Type Area Supervisor Labor Gang Device Identifier Shelf Expiration Date Model / Serial / Lot [employer] Assurity Mri [id number] Chamber Is-1 Connector Thk6mm Pacemaker [id number] - [id number] - [id number] Implanted:Qty: 1 on 07[facility]25[facility] [employer] [id number] 08/31/2024 [id number] / [id number] / [employer] Active Fixation Steroid Eluting Latex Free Sterile Right Atrium Ventricle Ultipace 52cm [id number]/52 - [id number] - [id number] Implanted:Qty: 1 on 07/25/2023 by [facility] at [facility] [employer] [id number] 03/02/2026 LPA12 31/10 2 / [id number] / [employer] Active Fixation Steroid Eluting Latex Free Sterile Right Atrium Ventricle Ultipace 46cm [id number]/46 - [id number] - [id number] Implanted:Qty: 1 on 07/25/2023 by [facility] at [facility] [employer] [id number] 01/31/2026 LPA12 6 / [id number] / Insurance [facility] IDPA [facility] MED[facility] ADVANTAGE Advance Directives For more information, please contact: [phone] * Full Code (Latest Code Status on File) Date Activated Date Inactivated Comments 07/23/2023 3:35 AM 07/31/2023 3:47 PM Care Teams Mat Gauger Relationship Specialty Start Date End Date Cole Lewis MD PCP - General Family Medicine 07/15/20
--- OUTSIDE RECORDS SUMMARY | 2024-09-23 07:38 | XMS_ITS | Clinical Summary ---
Author Organization [facility] [address] Address [address] [place] [address] Care Team Providers Care Emt Name Role Phone Cole Lewis MD Primary Care Provider Allergies Active Allergy Reactions Criticality Noted Date [...] left lower extremity including hip 08/16/2020 01/27/2021 Encounters Date Type Department Care Team Description 09/22/2024 Telephone [facility] Cardiology [address] [place] [address] Ashley Potts NP 07/31/2024 7:00 AM CYBER SECURITY SYSTEMS ENGINEER Ancillary Procedure [facility] Cardiology [address] [facility] [address] [place] [address] Tachy-xavi syndrome (HCC); Paroxysmal atrial fibrillation (HCC); Pacemaker; Syncope and collapse 07/31/2024 Telephone [facility] Cardiology [address] [place] [address] Itzel Alejandra RN Scheduling Appointments from Last 3 Months Immunizations Immunization Administration Dates Next Due Influenza, Unspecified 04/03/2023 Surgical History Surgery Date Site/Laterality Comments KNEE SURGERY Left UMBILICAL HERNIA REPAIR APPENDECTOMY INSERT VENA CAVA FILTER Medical History Medical History Date Comments H/O blood clots 2014 HTN (hypertension) Basal cell carcinoma (BCC) o f skin of left lower extremity including hip 08/16/2020 Family History Medical History Relation Name Comments Diabetes Brother Diabetes Mother Relation Name Status Comments Brother Mother Social History Tobacco Use Types Packs/Day Years Used Date Smoking Tobacco: Never Smokeless Tobacco: Never [employer] Utilities Answer Date Recorded In the past 12 months has [employer] gas, oil, or water [employer] threatened to shut off services in your [...] week 07/24/2023 How often do you attend [facility] or confucianist services? More than 4 times per year 07/24/2023 Do you belong to any clubs o r organizations such as islam groups, unions, fraternal or athletic groups, or [...] place to sleep or slept in a skilled nursing (including now)? No 07/24/2023 Personal Safety Answer Date Recorded Have you ever been in or are you currently in a harmful physical or emotional relationship or is someone making you feel afraid or unsafe? Denies 07/24/2023 Comments Unknown Sex and Gender Information Value Date Recorded Sex Assigned at Not on file Legal Sex Female 3:39 AM CYBER SECURITY SYSTEMS ENGINEER Gender Identity Not on file Sexual Orientation Not on file Obstetrics History Last Filed Vital Signs Vital Sign Reading Time Taken Comments Blood Pressure 110/80 11/01/2023 12:45 PM CDT Pulse 60 11/01/2023 12:45 PM CDT Temperature 36.3 C (97.3 F) 07/31/2023 8:16 AM CYBER SECURITY SYSTEMS ENGINEER Respiratory Rate 18 07/31/2023 5:02 AM CYBER SECURITY SYSTEMS ENGINEER Oxygen Saturation 94% 11/01/2023 12: 45 PM CDT Inhaled Oxygen Concentration - - Weight 86.5 kg (190 lb 11.2 oz) 024 12:45 PM CDT Height 167.6 cm (5' 6 ) 07/23/2023 2:37 AM CYBER SECURITY SYSTEMS ENGINEER Body Mass Index 30.78 07/23/2023 2:37 AM CYBER SECURITY SYSTEMS ENGINEER Plan of Treatment Health Maintenance Due Date Last Done Comments Depression Screening 1940 Osteoporosis Screening-Bone Density Scan 1942 DTaP/Tdap/Td Vaccine (1 - Tdap) 1953 Hepatitis B Screening 1960 Zoster Vaccine (1 of 2) 1992 Well Visit 65+ 2007 Fall Risk Assessment 07/31/2024 07/31/2023 Influenza Vaccine (Season Ended) 2025 04/03/2023, 03/12/2020, 02/21/2019, Additional history exists Pneumococcal vaccine 65+ Completed 06/11/2020, 09/02 Medical Devices Implanted Type Area Fire Lieutenant Device Identifier Shelf Expiration Date Model / Serial / Lot [employer] Assurity Mri [id number] 2 Chamber Is-1 Connector Thk6mm Pacemaker [id number] - [id number] - [id number] Implanted:Qty: 1 on 07/25/2023 by Jeb Cosby MD at [facility] Pacemaker [employer] [id number] 08/31/2024 [id number] / [id number] / [employer] Active Fixation Steroid Eluting Latex Free Sterile Right Atrium Ventricle Ultipace 52cm Ajr8475/52 - [id number] - [id number] Implanted:Qty: 1 on 07/25/2023 by Jeb Cosby MD at [facility] [employer] [id number] 03/02/2026 LPA31/10 2 / [id number] / [employer] Active Fixation Steroid Eluting Latex Free Sterile Right Atrium Ventricle Ultipace 46cm Apj9596/46 - [id number] - [id number] Implanted:Qty: 1 on 07/25/2023 by Jeb Cosby MD at [facility] [employer] [id number] 01/31/2026 6 / [id number] / Insurance [facility] Address: [address] [address] [place] [address] [facility] Address: [address] [address] [place] [address] IDPA [facility]IC[facility] ADVANTAGE [facility] Address: [address] [address] [place] [address] Advance Directives For more information, please contact: [phone] * Full Code (Latest Code Status on File) Date Activated Date Inactivated Comments 07/23/2023 3:35 AM 07/31/2023 3:47 PM Care Teams Emt Relationship Specialty Start Date End Date Cole Lewis MD PCP - General Family Medicine 07/15/20
--- OUTSIDE RECORDS SUMMARY | 2024-09-23 07:38 | XMS_ITS | Clinical Summary ---
Author Organization [facility] Address [facility] [place] [address] Care Team Providers Care Information Specialist Name Role Phone Unavailable Primary Care Provider Unavailabl e Allergies Active Allergy Reactions Criticality Noted Date Comments Penicillins Anaphylaxis High 08/12/2020 Sulfa Antibiotics Rash Medium 08/17/2017 Tape Rash Medium 07/23/2023 Tetracycline Unknown 08/17/2017 Active Problems Problem Noted Date Diagnosed Date Pacemaker 11/01/2023 Paroxysmal atrial fibrillation ([facility]) 11/01/2023 Primary hypertension 07/23/2023 Tachy-xavi syndrome ([facility]) 4 Hyperlipidemia, unspecified 08/17/2017 Personal history of DVT (deep vein thrombosis) 0 08/17/2017 Personal history of pulmonary embolism 8 Presence of other vascular implants and grafts 0 08/17/2017 Unspecified diastolic (conge stive) heart failure ([facility]) 08/17/2017 Social History Tobacco Use Types Packs/Day Years Used Date Smoking Tobacco: Never Assessed Comments Unknown Sex and Gender Information Value Date Recorded Sex Assigned at Not on file Legal Sex Female 4:16 PM CDT Gender Identity Not on file Sexual Orientation Not on file Plan of Treatment Upcoming Encounters Date Type Department Care Team (Late st Contact Info) Description 11/12/2024 9:15 AM CDT Office Visit [facility], [facility] [address] [place], [place] [id number] Umesh Baez MD [facility]. [facility] [address] [place], [place] [id number] Health Maintenance Due Date Last Done Comments DTaP, Tdap and Td Vaccines ( 1 - Tdap) 1961 Pneumococcal Vaccine: 50+ Ye ars (1 of 2 - PCV) 1961 Zoster Vaccines (1 of 2) 1992 Annual Medicare Wellness Visit 2007 Dexa Scan (General) 2007 RSV Immunization or 60+ Years (1 - 1-dose 75+ series) 2017 COVID-19 Vaccine (2023-2 5 season) 2024 Meningococcal B Vaccine Aged Out No l onger eligible based on patient's age to complete this topic Meningococcal Vaccine Aged Out No david kai eligible based on patient's age to complete this topic RSV Immunizations Under 20 Months Aged Out No longer eligible based on patient's age to complete this topic Medical Devices Implanted Type Area Test Lead Application Testing Device Identifier Shelf Expiration Date Model / Serial / Lot Pacemaker-[employer] Pacemaker Insurance [facility]
--- OUTSIDE RECORDS SUMMARY | 2024-09-23 07:38 | XMS_ITS ---
Author Organization [facility] [address] Address [address] [place] [address] Care Team Providers Care Enrollment Processor Name Role Phone Cole Lewis MD Primary Care Provider Active Problems Problem Noted Date Diagnosed Date Paroxysmal atrial fibrillation 11/01/2023 Pacemaker 11/01/2023 Hypokalemia 07/23/2023 Primary hypertension 07/23/2023 Chronic anticoagulation 07/23/2023 Personal history of DVT (deep vein thrombosis) 0 07/23/2023 Tachy-xavi syndrome 07/22/2023 Hypertensive heart and chron ic kidney disease with heart failure and stage 1 through stage 4 chronic kidney disease, or unspecified chronic kidney disease 08/17/2017 Current Treatment and Therapy Plans No current plan information found. Past Treatment and Therapy Plans No past plan information found. Lifetime Dose Tracking * Chemical Lifetime Dose Automatic Entry Manual Entr y Air kerma at the reference point (Ka,r) 295.1 mGy 0 mGy 295.1 mGy Resolved Problems Problem Noted Date Diagnosed Date Resolved Date Basal cell carcinoma (BCC) o f skin of left lower extremity including hip 08/16/2020 01/27/2021
--- OUTSIDE RECORDS SUMMARY | 2024-09-23 07:38 | XMS_ITS | Continuity of Care Document ---
Author Organization [facility] Address [address] [place] [address] Phone Care Team Providers Care Sea Foam Kiss Maker Name Role Phone Casey Ash Unavailable Unavailable Procedures Procedure Date Eye Exam & Treatment No Script Office/outpatient Visit, Est Vision Svcs Frames Purchases Frames Deluxe BF Plastic Sphcyl [place] To +/-4d .12-2d Scratch Resistant Coating Post-op [...] Diagnoses Date Provider Providers Copied on Encounter [facility], [address], [place], [place], [id number], [place] tel:[phone] SEC [facility] No Information [address] Nilsa Peña. [address] [facility] [address], [place], [address], [place]. tel:[phone] Office/outpat ient Visit, Est [facility], [address], [place], [place], [address], [place] tel:[phone] SEC [facility] No Information Nov-2 6-200 8 Krishnasamy Casey. [address] [facility] [address], [place], [address], [place]. tel:[phone] [facility], [address], [place], [place], [address], [place] tel:[phone] SEC [facility] No Information Jj-1 1-200 8 Optical [employer]. [address] [facility], [address], [place], [place], [address], [place]. tel:[phone] Referring Provider: Casey prince, [address] [place] [address] [address], [place], [place], [facility]. tel:[phone] [facility], [address], [place], [place], [address], [place] tel:[phone] [facility] No Information May-2 8-200 8 Krishnasamy Casey. [facility] [address], [place], [address], [place]. tel:[phone] [facility], [address], [place], [place], [address], [place] tel:[phone] SEC [facility] No Information May-0 2-200 8 Krishnasamy Casey. [address] [facility] [address], [place], [address], [place]. tel:[phone] [facility], [address], [place], [place], [address], [place] tel:[phone] [facility] No Information Apr-2 8-200 8 Doisy Edward. [address], [place], [address], [place]. tel:[phone] [facility], [address], [place], [place], [address], [place] tel:[phone] [facility] No Information Apr-2 5-200 8 Mendez OD Chris. [address], [address], [place], [address], [place]. tel:[phone] Referring Provider: Casey prince, [address], [place], [address]. tel:[phone] [facility], [address], [place], [place], [address], [place] tel:[phone] [facility] No Information Apr-2 4-200 8 Krishnasamy Casey. [facility] [address], [place], [place], [facility], [place]. tel:[phone] [facility], [address], [place], [place], [address], [place] tel:[phone] [facility] No Information Apr-0 9-200 8 Krishnasamy Casey. [address], [place], [address], [place]. tel:[phone] Referring Provider: Casey prnice, [facility] [address], [place], [address]. tel:[phone] [facility], [address], [place], [place], [address], [place] tel:[phone] [facility] No Information Mar-1 4-200 8 Krishnasamy Casey. [address], [place], [address], [place]. tel:[phone] [facility], [address], [place], [place], [address], [place] tel:[phone] [facility] No Information Mar-0 7-200 8 Krishnasamy Casey. [address] [place] [address], [facility], . tel:[phone] [facility], [address] [facility] [address], [place], [place], [address], tel:[phone] [facility] No Information Mar-0 6-200 8 Krishnasamy Casey. [address] [facility] [address], [place], [facility], . tel:[phone] [facility], [address], [place], [place], [address], tel:[phone] [facility] No Information Feb-2 7-200 8 Krishnasamy Casey. [address] [place] [address], [facility], . tel:[phone] Referring Provider: Casey prince, [address] [place] [address], [facility]. tel:[phone] Family History Family Member Type Diagnosis Age At Onset No Information Payers Payer name Insurance type Covered libertarian ID Authoriza tion(s) [place] [id number] Social History Type Description Quantity Date Captured [...]
[2024-09-23 08:07] LABS: Basophils Absolute Auto 0.1 K/mm3 (0.0-0.1); Eosinophils Absolute Auto 0.1 K/mm3 (0-0.3); Hemoglobin 13.2 g/dL (12.0-15.0); Immature Granulocyte Absolute 0.01 K/mm3 (0.00-0.031); Immature Granulocyte Percent A 0.2 % (0-0.5); Lymphocytes Absolute Auto 1.06 K/mm3 (0.9-3.2); Mean Corpuscular HGB Conc 32.2 g/dl (32-36); Mean Corpuscular Hemoglobin 28.8 pg (26-34); Mean Corpuscular Volume 89.3 fl (80-100); Mean Platelet Volume 9.5 fl (7.4-10.4); Monocytes Absolute Auto 0.5 K/mm3 (0.1-0.6); Monocytes Percent Auto 9.3 % (2.6-8.5); Neutrophils Absolute Auto 3.4 K/mm3 (1.3-6.7); Neutrophils Percent Auto 66.5 % (45.5-73.1); Platelet Count Result 231 k/mm3 (150-375); Red Blood Count 4.59 M/mm3 (4.2-5.4); Red Cell Distribution Width 13.4 % (11.5-14.5); White Blood Count 5.1 K/mm3 (4.5-10.0)
[2024-09-23 08:20] LABS: Alanine Aminotransferase 13 U/L (6-35); Albumin Level 4.5 g/dL (3.5-5.1); Alkaline Phosphatase 88 U/L (38-126); Anion Gap 11 mmol/L (4-12); Aspartate Amino Transferase 20 U/L (14-36); Blood Urea Nitrogen 18 mg/dL (7-17); Calcium 9.5 mg/dL (8.4-10.2); Carbon Dioxide 24 mmol/L (22-30); Chloride 109 mmol/L (98-107); Cholesterol 220 mg/dL (0-200); Estimated Glomerular Filt Rate > 60; Glucose 105 mg/dL (65-110); HDL Direct 52 mg/dL; Potassium 3.5 mmol/L (3.4-5.0); Sodium 144 mmol/L (137-145); Triglycerides 134 mg/dL (<150)
[2024-09-23 08:40] LABS: LDL Cholesterol Direct 114 mg/dL
[2024-09-23 08:51] LABS: Free T4 Free Thyroxine 1.53 ng/dL (0.78-2.19)
[2024-09-23 08:57] LABS: Total Triiodothyronine (T3) 1.15 NG/ML (0.97-1.69)
[2024-09-23 09:10] LABS: Hemoglobin A1C 5.7 % (<5.7)
== END 2024-09-23 07:33 | disposition home or self-care (01) ==
PROVIDERS: PCP Family Medicine; Visit Provider Nurse Practitioner Family
DX: E78.5 Hyperlipidemia, unspecified (principal); R73.03 Prediabetes; I48.91 Unspecified atrial fibrillation
CPT/HCPCS: 36415; 80053; 80061; 83036; 84439; 84443; 84480; 85025

== ENCOUNTER 2025-02-16 09:08 | Outpatient (CLI) | payer MEDICARE, SELFPAY ==
--- OUTSIDE RECORDS SUMMARY | 2009-05-13 08:45 | XMS_ITS | Continuity of Care Document ---
Author Organization 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 Name Role Phone Casey Ash Unavailable Unavailable Procedures Procedure Date Eye Exam & Treatment No Script Office/outpatient Visit, Est Vision Svcs Frames Purchases Frames Deluxe BF Plastic Sphcyl [place] To +/-4d .12-2d Scratch Resistant Coating Post-op Follow-up Visit Post-op Follow-up Visit Post-op Follow-up Visit Post-op Follow-up Visit Remove Cataract, Insert Lens Post-op Follow-up Visit [facility] Post-op Follow-up Visit Post-op Follow-up Visit Remove Cataract, Insert Lens Eye Exam, New Patient [facility] Advance Directives Directive Yes / No Effective Date File Name No Information Encounters Encounter Description Practice Location Reason(s) For Visit Diagnoses Date Provider Providers Copied on Encounter [facility], [address], [place], [place], [id number], [place] tel:[phone] [facility] No Information 1200 9 Nilsa Peña. [address] [facility] [address], [place], [address], [place]. tel:[phone] Office/outpat ient Visit, Est [facility], [address], [place], [place], [id number], [place] tel:[phone] [facility] No Information Nov-2 6-200 8 Krishnasamy Casey. [address] [facility] [address], [place], [address], [place]. tel:[phone] [facility], [address], [place], [place], [id number], [place] tel:[phone] [facility] No Information Jj-1 1-200 8 [employer]. [address] [facility], [address], [place], [place], [id number], [place]. tel:[phone] Referring Provider: Casey prince, [address] [place] [address] [address], [place], [place], [facility]. tel:[phone] [facility], [address], [place], [place], [address], [place] tel:[phone] [facility] No Information May-2 8-200 8 Krishnasamy Casey. [facility] [address], [place], [address], [place]. tel:[phone] [facility], [address], [place], [place], [id number], [place] tel:[phone] [facility] No Information May-0 2-200 8 Krishnasamy Casey. [address] [facility] [address], [place], [address], [place]. tel:[phone] [facility], [address], [place], [place], [address], [place] tel:[phone] [facility] No Information Apr-2 8-200 8 Doisy Edward. [address], [place], [address], [place]. tel:[phone] [facility], [address], [place], [place], [address], [place] tel:[phone] [facility] No Information Apr-2 5-200 8 Mendez OD Chris. [address], [address], [place], [address], [place]. tel:[phone] Referring Provider: Casey prince, [address], [place], [address]. tel:[phone] [facility], [address], [place], [place], [address], [place] tel:[phone] [facility] No Information Apr-2 4-200 8 Krishnasamy Casey. [facility] [address], [place], [facility], [place]. tel:[phone] [facility], [address], [place], [place], [address], [place] tel:[phone] [facility] No Information Apr-0 9-200 8 Krishnasamy Casey. [address], [place], [address], [place]. tel:[phone] Referring Provider: Casey prince, [facility] [address], [place], [address]. tel:[phone] [facility], [address], [place], [place], [address], [place] tel:[phone] [facility] No Information Mar-1 4-200 8 Krishnasamy Casey. [address], [place], [address], [place]. tel:[phone] [facility], [address], [place], [place], [address], [place] tel:[phone] [facility] No Information Mar-0 7-200 8 Krishnasamy Casey. [address] [place] [address], [facility], . tel:[phone] [facility], [address] [facility] [address], [place], [place], [address], tel:[phone] [facility] No Information Mar-0 6-200 8 Krishnasamy Casey. [address] [facility] [address], [place], [facility], . tel:[phone] [facility], [address] [facility] [address], [place], [place], [address], tel:[phone] [facility] No Information Feb-2 7-200 8 Krishnasamy Casey. [address] [place] [address], [facility], . tel:[phone] Referring Provider: Casey prince, [address] [place] [address], [facility]. tel:[phone] Family History Family Member Type Diagnosis Age At Onset No Information Payers Payer name Insurance type Covered libertarian ID Authoriza tion(s) [place] [id number] Social History Type Description Quantity Date Captured Comments Sex Female Smoking Status No Information Chief Complaint And Reason For Visit No Information Reason For Referral Reason For Referral No Information History Of Present Illness Encounter Date Complaint History Of Prese nt Illness No Information Functional Status Date Functional Assessmen t No Information Instructions Date Instruction Additional Infor mation No Information Assessments Type Assessment Date No Information Patient Care Teams Name Effective Dates (start - stop) Status Members No Information
[2025-02-16 09:58] LABS: Hematocrit 41.3 % (37.0-47.0); Hemoglobin 13.5 g/dL (12.0-15.0); Immature Granulocyte Percent A 0.3 % (0-0.5); Lymphocytes Absolute Auto 1.19 K/mm3 (0.9-3.2); Mean Corpuscular HGB Conc 32.7 g/dl (32-36); Mean Corpuscular Hemoglobin 29.4 pg (26-34); Mean Corpuscular Volume 90.0 fl (80-100); Nucleated Red Blood Cells Absolute Auto 0.000 K/mm3 (0.0-0.012); Nucleated Red Blood Cells Perc 0.0 % (0.0-0.2); Platelet Count Result 211 k/mm3 (150-375); Red Blood Count 4.59 M/mm3 (4.2-5.4); White Blood Count 6.0 K/mm3 (4.5-10.0)
[2025-02-16 10:12] LABS: Hemoglobin A1C 5.8 % (<5.7)
[2025-02-16 10:20] LABS: Alanine Aminotransferase 10 U/L (6-35); Albumin Level 4.3 g/dL (3.5-5.1); Alkaline Phosphatase 77 U/L (38-126); Anion Gap 10 mmol/L (4-12); Aspartate Amino Transferase 22 U/L (14-36); Bilirubin,Total 1.1 mg/dL (0.2-1.3); Blood Urea Nitrogen 25 mg/dL (7-17); Calcium 9.0 mg/dL (8.4-10.2); Carbon Dioxide 22 mmol/L (22-30); Chloride 109 mmol/L (98-107); Cholesterol 204 mg/dL (0-200); Estimated Glomerular Filt Rate > 60; Glucose 103 mg/dL (65-110); HDL Direct 50 mg/dL; Magnesium 2.1 mg/dL (1.6-2.3); Potassium 3.3 mmol/L (3.4-5.0); Sodium 141 mmol/L (137-145); Total Protein 7.8 g/dL (6.3-8.2); Triglycerides 158 mg/dL (<150)
--- OUTSIDE RECORDS SUMMARY | 2025-02-16 10:23 | XMS_ITS | Encounter Summary ---
Author Organization [facility] Healthcare Address [address] [place] [address] Care Team Providers Care Carpet Jack Name Role Phone Cole Lewis MD Primary Care Provider [phone] Encounter Details Date Type Department Care Team (Late st Contact Info) Description 08/12/2017 Orders Only [facility] Information Management [address] [place] [address] Scanning, Provider Social History Tobacco Use Types Packs/Day Years Used Date Smoking Tobacco: Never Assessed Comments Unknown Sex and Gender Information Value Date Recorded Sex Assigned at Not on file Legal Sex Female 3:39 AM HIV CTS SPECIALIST Gender Identity Not on file Sexual Orientation Not on file documented as of this encounter Plan of Treatment Not on file documented as of this encounter Procedures Procedure Name Priority Date/Time Associated Diagnosis Comments CARDIOLOGY DOCUMENT SCAN 08/12/2017 documented in this encounter Results * Cardiology Document Scan (08/12/2017) Anatomical Region Laterality Modality Other us Provider Scanning CV CARDIAC SERVICES PROCEDURES Final Result documented in this encounter Visit Diagnoses Not on filedocumented in this encounter Care Teams Carpet Jack Relationship Specialty Start Date End Date Cole eLwis MD PCP - General Family Medicine 07/15/20 documented as of this encounter
--- OUTSIDE RECORDS SUMMARY | 2025-02-16 10:23 | XMS_ITS | Clinical Summary ---
Author Organization [facility] [place] [address] Address [address] [place] [address] Care Team Providers Care Director Of Acquisition Marketing Name Role Phone Cole Lewis MD Primary [...] Date Smoking Tobacco: Never Smokeless Tobacco: Never [facility] Utilities Answer Date Recorded In the past 12 months has [employer], gas, oil, or water [employer] threatened to shut off services in your home? No 07/24/2023 Social Connection and Isolation Panel Answer Date Recorded In a typical week, how many times do you talk on the phone with family, friends, or neighbors? More than three times a week 07/24/2023 How often do you get togethe r with friends or relatives? More than three times a week 07/24/2023 How often do you attend chur or yazdanism services? More than 4 times per year 07/24/2023 Do you belong to any clubs o r organizations such as scientology groups, unions, fraternal or athletic groups, or [...] place to sleep or slept in a chcf (including now)? No 07/24/2023 Personal Safety Answer Date Recorded Have you ever been in or are you currently in a harmful physical or emotional relationship or is someone making you feel afraid or unsafe? Denies 07/24/2023 Comments Unknown Sex and Gender Information Value Date Recorded Sex Assigned at Not on file Legal Sex Female 3:39 AM TREE WARDEN Gender Identity Not on file Sexual Orientation Not on file Obstetrics History Last Filed Vital Signs Vital Sign Reading Time Taken Comments Blood Pressure 110/80 11/01/2023 12:45 PM CDT Pulse 60 11/01/2023 12:45 PM CDT Temperature 36.3 C (97.3 F) 07/31/2023 8:16 AM TREE WARDEN Respiratory Rate 18 07/31/2023 5:02 AM TREE WARDEN Oxygen Saturation 94% 11/01/2023 12: 45 PM CDT Inhaled Oxygen Concentration - - Weight 86.5 kg (190 lb 11.2 oz) 024 12:45 PM CDT Height 167.6 cm (5' 6) 07/23/2023 2:37 AM TREE WARDEN Body Mass Index 30.78 07/23/2023 2:37 AM TREE WARDEN Plan of Treatment Health Maintenance Due Date Last Done Comments Depression Screening 1940 Osteoporosis Screening-Bone Density Scan 1942 DTaP/Tdap/Td Vaccine (1 - Tdap) 1953 Hepatitis B Screening 1960 Zoster Vaccine (1 of 2) 1992 Well Visit 65+ 2007 Fall Risk Assessment 07/31/2024 07/31/2023 Influenza Vaccine (#1) 2025 , 03/12/2020, 02/21/2019, Additional history exists Pneumococcal vaccine 65+ Completed 06/11/2020, 09/02 Medical Devices Implanted Type Area Fishing Gear Mechanic Device Identifier Shelf Expiration Date Model / Serial / Lot [employer] Assurity Mri [id number] Chamber Is-1 Connector Thk6mm Pacemaker [id number] - [id number] - [id number] Implanted:Qty: 1 on 07/25/2023 by Jeb Cosby MD at [facility] Pacemaker [employer] [id number] 08/31/2024 [id number] / [id number] / [employer] Active Fixation Steroid Eluting Latex Free Sterile Right Atrium Ventricle Ultipace 52cm [id number]/52 - [id number] - [id number] Implanted:Qty: 1 on 07/25/2023 by Jeb Cosby MD at [facility] [employer] [id number] 03/02/2026 LPA12 31/10 2 / [id number] / [employer] Active Fixation Steroid Eluting Latex Free Sterile Right Atrium Ventricle Ultipace 46cm [id number]/46 - [id number] - [id number] Implanted:Qty: 1 on 07/25/2023 by Jeb Cosby MD at [facility] [employer] [id number] 01/31/2026 LPA12 6 / [id number] / Insurance [facility] MEDICARE ADVANTAGE [facility] MDCR HMO REF IDPA [facility] MEDICARE ADVANTAGE Advance Directives For more information, please contact: [phone] * Full Code (Latest Code Status on File) Date Activated Date Inactivated Comments 07/23/2023 3:35 AM 07/31/2023 3:47 PM Care Teams Director Of Acquisition Marketing Relationship Specialty Start Date End Date Cole Lewis MD PCP - General Family Medicine 07/15/20
--- OUTSIDE RECORDS SUMMARY | 2025-02-16 10:23 | XMS_ITS ---
Author Organization [facility] [place] [address] Address [address] [place] [address] Care Team Providers Care Manager Research Name Role Phone Cole Lewis MD Primary Care Provider [phone] Active Problems Problem Noted Date Diagnosed Date [...] Lifetime Dose Automatic Entry Manual Entr y Fluoro Time 3.7 minutes 0 minutes 3.7 minutes Air kerma at the reference point (Ka,r) 295.1 mGy 0 mGy 295.1 mGy DAP 14.477 Gy-cm2 0 Gy-cm2 14.477 Gy-cm2 Resolved Problems Problem Noted Date Diagnosed Date Resolved Date Basal cell carcinoma (BCC) o f skin of left lower extremity including hip 08/16/2020 01/27/2021
[2025-02-16 10:51] LABS: Thyroid Stimulating Hormone Reflex 3.150 uIU/mL (0.465-4.68)
[2025-02-16 11:31] LABS: Vitamin B12 235.0 pg/mL (239-931)
== END 2025-02-16 09:09 | disposition home or self-care (01) ==
PROVIDERS: PCP Family Medicine; Visit Provider Nurse Practitioner Family
DX: E78.5 Hyperlipidemia, unspecified (principal); R53.83 Other fatigue; I10 Essential (primary) hypertension; I25.10 Atherosclerotic heart disease of native coronary artery without angina pectoris; Z13.1 Encounter for screening for diabetes mellitus
CPT/HCPCS: 36415; 80053; 80061; 82607; 82746; 83036; 83735; 84443; 85025

== ENCOUNTER 2025-02-22 09:12 | Outpatient (CLI) | payer MEDICARE, SELFPAY ==
--- OUTSIDE RECORDS SUMMARY | 2025-02-22 10:27 | XMS_ITS | Clinical Summary ---
Author [place] [facility] [place] [address] Address [address] [place] [address] Care Team Providers Care Document Control Associate Name Role Phone Cole Lewis MD Primary [...] Date Smoking Tobacco: Never Smokeless Tobacco: Never [facility] Utilities Answer Date Recorded In the past 12 months has [employer], gas, oil, or water [employer] threatened to shut off services in your [...] How often do you attend chur or cheondoism services? More than 4 times per year 07/24/2023 Do you belong to any clubs o r organizations such as baptist groups, unions, fraternal or athletic groups, or [...] place to sleep or slept in a fdc (including now)? No 07/24/2023 Personal Safety Answer Date Recorded Have you ever been in or are you currently in a harmful physical or emotional relationship or is someone making you feel afraid or unsafe? Denies 07/24/2023 Comments Unknown Sex and Gender Information Value Date Recorded Sex Assigned at Not on file Legal Sex Female 3:39 AM POLICY CHANGE CLERK Gender Identity Not on file Sexual Orientation Not on file Obstetrics History Last Filed Vital Signs Vital Sign Reading Time Taken Comments Blood Pressure 110/80 11/01/2023 12:45 PM CDT Pulse 60 11/01/2023 12:45 PM CDT Temperature 36.3 C (97.3 F) 07/31/2023 8:16 AM POLICY CHANGE CLERK Respiratory Rate 18 07/31/2023 5:02 AM POLICY CHANGE CLERK Oxygen Saturation 94% 11/01/2023 12: 45 PM CDT Inhaled Oxygen Concentration - - Weight 86.5 kg (190 lb 11.2 oz) 024 12:45 PM CDT Height 167.6 cm (5' 6) 07/23/2023 2:37 AM POLICY CHANGE CLERK Body Mass Index 30.78 07/23/2023 2:37 AM POLICY CHANGE CLERK Plan of Treatment Health Maintenance Due Date [...] 06/11/2020, 09/02 Medical Devices Implanted Type Area Hydraulic Riveter Device Identifier Shelf Expiration Date Model / Serial / Lot [employer] Assurity Mri [id number] 2 Chamber Is-1 Connector Thk6mm Pacemaker [id number] - [id number] - [id number] Implanted:Qty: 1 on 07/25/2023 by Jeb Cosby MD at [facility] Pacemaker [employer] [id number] 08/31/2024 [id number] / [id number] / [employer] Active Fixation Steroid Eluting Latex Free Sterile Right Atrium Ventricle Ultipace 52cm [id number]/52 - [id number] - [id number] Implanted:Qty: 1 on 07/25/2023 by Jeb Cosby MD at [facility] [employer] [id number] 03/02/2026 LPA12 31/10 2 / [id number] / [employer] Active Fixation Steroid Eluting Latex Free Sterile Right Atrium Ventricle Ultipace 46cm Dnm2940/46 - [id number] - [id number] Implanted:Qty: 1 on 07/25/2023 by Jeb Cosby MD at [facility] [employer] [id number] 01/31/2026 LPA12 6 / [id number] / Insurance [facility] MEDICARE ADVANTAGE [facility] MDCR HMO REF IDPA [facility] MEDICARE ADVANTAGE Advance Directives For more information, please contact: [phone] * Full Code (Latest Code Status on File) Date Activated Date Inactivated Comments 07/23/2023 3:35 AM 07/31/2023 3:47 PM Care Teams Document Control Associate Relationship Specialty Start Date End Date Cole Lewis MD PCP - General Family Medicine 07/15/20
--- OUTSIDE RECORDS SUMMARY | 2025-02-22 10:27 | XMS_ITS | Encounter Summary ---
Author Organization [facility] Healthcare Address [address] [place] [address] Care Team Providers Care Digitizer Operator Name Role Phone Cole Lewis MD Primary Care Provider [phone] Encounter Details Date Type Department Care Team (Late st Contact Info) Description 08/12/2017 Orders Only [facility] [place] Information Management [address] [place] [id number] Scanning, Provider Social History Tobacco Use Types Packs/Day Years Used Date Smoking Tobacco: Never Assessed Comments Unknown Sex and Gender Information Value Date Recorded Sex Assigned at Not on file Legal Sex Female 3:39 AM FITTER AND TURNER Gender Identity Not on file Sexual Orientation [...] on filedocumented in this encounter Care Teams Digitizer Operator Relationship Specialty Start Date End Date Cole Lewis MD PCP - General Family Medicine 07/15/20 documented as of this encounter
--- OUTSIDE RECORDS SUMMARY | 2025-02-22 10:27 | XMS_ITS ---
Author Organization [facility] [place] [address] Address [address] [place] [address] Care Team Providers Care Hematologist Oncologist Name Role Phone Cole Lewis MD Primary [...]
[2025-02-22 11:07] LABS: NT Pro B Type Natriuretic Pept 532 pg/mL (19.9-100)
== END 2025-02-22 09:13 | disposition home or self-care (01) ==
PROVIDERS: PCP Family Medicine; Visit Provider Nurse Practitioner Family
DX: I50.9 Heart failure, unspecified (principal); E55.9 Vitamin D deficiency, unspecified
CPT/HCPCS: 36415; 82306; 83880